=== PATIENT | male | born 1945 | race African-American/Black ===

== ENCOUNTER 2017-04-01 12:02 | Inpatient (IN) ==
--- NOTE | 2017-04-01 13:05 | General Surgery Consult Note ---
Assessment and Plan (1) Gangrene of toe of right foot Status: Acute Assessment and plan: This patient has wet gangrene of his right great toe with crepitus and significant tenderness and I have recommended a ray amputation today. The patient is medically comorbid and I have asked that he be admitted to the medicine service with nephrology consultation for his renal failure and will do further workup of his falls and weakness to the ER physician for anything further that they feel is necessary. I discussed the procedure with the patient and his and they agreed to proceed. Current Visit: Yes History of Present Illness Chief complaint: Weakness right foot pain History of present illness: Mr. Rico is a 72 year old male with history of renal failure on hemodialysis who came to the ER earlier this week for diarrhea and weakness and was given some medication and discharged home. He represents today for worsening of his symptoms and was unable to do dialysis because of how weak he was. He fell as well and presented to the ER with his for evaluation. He has a lot of pain in his right foot and has some wet gangrene over that toe. I had done a prior left great toe ray amputation which is well-healed. Home Medications Medication Instructions Recorded Confirmed Type Carvedilol 6.25 mg PO BID 09/28/15 04/01/17 History NIFEdipine [Nifedipine ER] 90 mg PO QAM 09/28/15 04/01/17 History Calcium Acetate 667 mg PO TID W/MEALS 01/06/16 04/01/17 History Cinacalcet HCl [Sensipar] 60 mg PO DAILY 11/08/16 04/01/17 History Sevelamer Carbonate Tab [Renvela 1,600 mg PO TID W/MEALS 11/08/16 04/01/17 History Tab] Atorvastatin Calcium 40 mg PO DAILY 03/29/17 04/01/17 History Diphenoxylate/Atrop 2.5-0.025 2 tablet PO Q6H PRN #20 tablet 03/29/17 04/01/17 Rx [Lomotil Tab] Multivitamin [Multivitamins] 1 each PO DAILY 03/29/17 04/01/17 History Ondansetron [Ondansetron Odt] 4 mg PO Q6H PRN #20 tab.rapdis 03/29/17 04/01/17 Rx glipiZIDE [Glipizide] 10 mg PO DAILY 03/29/17 04/01/17 History Allergies Allergy/AdvReac Type Severity Reaction Status Date / Time No Known Allergies Allergy Verified 04/01/17 12:24 Medical,Surgical,& Family Hx - Medical History Cardio: History of: Hypertension Neurology: No history of: Cerebrovascular Accident, Seizures HEENT: History of: Eye Problem (Glasses) Endocrine: History of: Diabetes Mellitus (NIDDM), Dyslipidemia Respiratory: No history of: Respiratory Problems (Flu Vac current [id number]; Current Pneum Vac) Renal: History of: Dialysis (-W- Dr. Nathan), Renal Failure, Renal Problems Musculoskeletal: History of: Amputation (left big toe) Other: History of: Miscellaneous Medical Problems ([facility]) No history of: Anesthesia Reactions, Cancer - Surgical History Cardiac Surgeries: Sugical HX of: Vascular Access Devices (Lt arm AV Graft) Neurologic Surgeries: Surgical HX of: Neurologic Surgery (previous head injury) HEENT Surgeries: Surgical HX of: Eye Surgery (Cataract RT/LT) - Family History Family History: Reports;: Family Diabetes Denies;: Family Stroke - Social History Smoking Status: Never smoker Frequency of Alcohol Use: None Type of Drug Use: None - Constitutional Constitutional: Present: as per HPI - EENT Nose, mouth and throat: Present: as per HPI - Cardiovascular Cardiovascular: Present: as per HPI - Respiratory Respiratory: Present: as per HPI - Gastrointestinal Gastrointestinal: Present: as per HPI - Genitourinary Genitourinary: Present: as per HPI - Musculoskeletal Musculoskeletal: Present: as per HPI - Neurological Neurological: Present: as per HPI - Endocrine Endocrine: Present: as per HPI Hematologic/Lymphatic: Present: as per HPI Exam - Constitutional Vitals: Period Temp Pulse Resp BP Sys/Avalos Pulse Ox Last 24 Hr 101.1 F 101 20 120/61 94 General appearance: no acute distress, over weight - Head Head exam: Present: normal inspection, normocephalic - Eye Eye exam: Present: EOMI Pupils: Present: TIN - ENT ENT exam: Present: normal exam Mouth exam: Present: normal external inspection - Neck Neck exam: Present: normal inspection, trachea midline - Respiratory Respiratory exam: Present: clear to auscultation bilaterally. Absent: accessory muscle use, chest wall tenderness - Cardiovascular Cardiovascular exam: Present: tachycardia. Absent: irregular rhythm, systolic murmur - GI/Abdominal GI/Abdominal exam: Present: soft. Absent: tenderness, rebound - Extremities Exam Extremities exam: Present: other (There is wet gangrene of the right second toe with crepitus and forefoot and significant tenderness.) - Back Exam Back exam: Present: normal inspection - Neurological Exam Neurological exam: Present: alert - Skin Skin exam: Present: normal color, warm
[2017-04-01] MEDS ORDERED: VANCOMYCIN INJ 1,000 MG in SODIUM CHLORIDE 0.9% 250 ML IV STA (13:07)
--- NOTE | 2017-04-01 13:11 | XRay Report ---
Portable chest. Indication: Fall, respiratory preoperative. The heart is enlarged. There is left ventricular hypertrophy. There is calcific plaque present within the aortic knob. The lung volumes are small. The pulmonary vasculature is normal. The lung tate are clear. Degenerative changes are present within the spinal column. Impression: Cardiomegaly. No acute abnormality. PROCEDURE INTERPRETED AT [facility] DEPARTMENT OF RADIOLOGY Final Report Signed by: Dr. Tabatha Martin
--- NOTE | 2017-04-01 13:13 | XRay Report ---
Right foot, 2 views. Indication: Second toe gangrene. Infection. Pain. No previous study. There is small vessel atherosclerotic disease, usually indicative of diabetes. There is a large plantar calcaneal spur. There is mild spurring of the dorsal mid and hindfoot. There is soft tissue swelling of the forefoot, particularly involving the second toe. There is extensive air in the soft tissues of the second toe, extending to the second metatarsophalangeal joint. No radiodense foreign body. There is absence of tissue along the distal aspect of the second toe. There is erosion of the distal tuft of the second toe, consistent with active osteomyelitis which does not extend to the joint space. Degenerative changes are noted at the first metatarsophalangeal joint. Impression: Gangrene of the second toe, with osteomyelitis of the distal phalanx of the second digit. PROCEDURE INTERPRETED AT [facility] DEPARTMENT OF RADIOLOGY Final Report Signed by: Dr. Tabatha Martin
--- NOTE | 2017-04-01 13:18 | EKG Report ---
Stationary ECG Study [facility] ER Test Date: 04/01/2017 1:18:20 PM Pat Name: SHERIF JORGENSEN Department: Room: Gender: M Guide Travel: : 1945 Requested by: Fela Rodas Order Number: [id number] Reading MD: HAYDEN PAZ Intervals [place] Rate: 100 P: 39 AL: 190 QRS: 120 QRSD: 105 T: -16 QT: 330 QTc: 387 Interpretive Statements SINUS TACHYCARDIA INCOMPLETE RIGHT BUNDLE BRANCH BLOCK POSSIBLE RIGHT VENTRICULAR HYPERTROPHY POSSIBLE ANTERIOR MYOCARDIAL INFARCTION, PROBABLY OLD Electronically Signed On 04-02-17 10:38:58 CDT by HAYDEN PAZ [email or web address]
[2017-04-01] MEDS ORDERED: GENTAMICIN INJ 120 MG in PREMIX 1 EACH IV STA (13:34)
[2017-04-01 13:35] LABS: Basophils # 0.1 10*3/uL (0.0-0.2); Basophils % 0.4 % (0.0-0.8); Eosinophils # 0.2 10*3/uL (0.0-0.87); Eosinophils % 1.1 % (0.00-10.9); Hematocrit 31.5 VOL% (42.0-52.0); Immature Granulocytes % 1.5 %; Immature Granulocytes Absolute 0.24 #; Lymphocytes # 2.5 10*3/uL (1.4-4.0); Lymphocytes % 15.1 % (21.2-54.2); Mean Corpuscular HGB Conc 34.9 GM/DL (32-36); Mean Corpuscular Hemoglobin 30 PG (27-34); Mean Corpuscular Volume 86.3 FL (87-102); Mean Platelet Volume 9.7 FL (9.6-12.0); Monocytes # 1.6 10*3/uL (0.11-0.8); Monocytes % 9.9 % (1.7-12.7); Neutrophils # 11.9 10*3/uL (1.4-7.4); Platelet Count 337 T/CUMM (130-400); Red Blood Count 3.65 MC/CUMM (3.8-5.5); Red Cell Distribution Width 15.4 % (9.3-17.3); White Blood Count 16.5 T/CUMM (4-12)
--- NOTE | 2017-04-01 13:36 | Emergency Department Note ---
Arrival - Arrival Chief Complaint: Weakness Stated Complaint: SOB, Shaking, fell ED Nursing Triage Note: C/O PATIENTS STATES THAT PATIENT HAS FELL AROUND 1800 LAST EVENING, AND AGAIN THIS AM AROUND 0530, STATES WEAK IN LEGS BILATERAL AND GENERALIZED WEAKNESS, ALSO C/O HAVING WOUND NOTED TO THE 2ND DIGIT OF THE RIGHT FOOT, + CHILLS,. DIALYSIS M,W,F Mode of Arrival: Wheelchair Source: Patient, Family, Old Records Reviewed Time Seen by Provider: 04/01/17 12:52 - History of Present Illness HPI Narrative: 72-year-old -[place] male with end-stage renal disease on hemodialysis, essential tremor, hypertension, diabetes, vasculopath presents today with his family for multiple falls. He tells me he is feeling very poorly. Family does not know anything about fevers. He says he does not know why he keeps falling. He denies weakness dizziness chest pain shortness of breath syncope. He does however complain of right toe pain. He is also had some nausea and vomiting. Family initially complained of multiple falls with weakness and triage noted that he is having a fever of 101. Family also reported that he has been having some diarrhea and he has missed dialysis over the last week. They report he has been too sick. Consistency: constant Severity: moderate Severity scale (1-10): 8 Allergies/Adverse Reactions: Allergies Allergy/AdvReac Type Severity Reaction Status Date / Time No Known Allergies Allergy Verified 04/01/17 12:24 Home Medications: Home Medications Medication Instructions Recorded Confirmed Type Carvedilol 6.25 mg PO BID 09/28/15 04/01/17 History NIFEdipine [Nifedipine ER] 90 mg PO QAM 09/28/15 04/01/17 History Calcium Acetate 667 mg PO TID W/MEALS 01/06/16 04/01/17 History Cinacalcet HCl [Sensipar] 60 mg PO DAILY 11/08/16 04/01/17 History Sevelamer Carbonate Tab [Renvela 1,600 mg PO TID W/MEALS 11/08/16 04/01/17 History Tab] Atorvastatin Calcium 40 mg PO DAILY 03/29/17 04/01/17 History Diphenoxylate/Atrop 2.5-0.025 2 tablet PO Q6H PRN #20 tablet 03/29/17 04/01/17 Rx [Lomotil Tab] Multivitamin [Multivitamins] 1 each PO DAILY 03/29/17 04/01/17 History Ondansetron [Ondansetron Odt] 4 mg PO Q6H PRN #20 tab.rapdis 03/29/17 04/01/17 Rx glipiZIDE [Glipizide] 10 mg PO DAILY 03/29/17 04/01/17 History Review of System - Review of System Constitutional: Present: chills, weakness Eyes: Absent: pain, redness Head/Ears/Nose/Throat: Absent: epistaxis, nasal drainage Respiratory: Absent: cough, respiratory distress Cardiovascular: Absent: chest pain, syncope Gastrointestinal: Present: nausea, vomiting. Absent: diarrhea Genitourinary male: Absent: dysuria, hematuria Musculoskeletal: Present: leg pain Skin: Absent: rash, pruritus Neurological: Absent: headache Medical,Surgical,& Family Hx - Medical History Cardio: History of: Hypertension Neurology: No history of: Cerebrovascular Accident, Seizures HEENT: History of: Eye Problem (Glasses) Endocrine: History of: Diabetes Mellitus (NIDDM), Dyslipidemia Respiratory: No history of: Respiratory Problems (Flu Vac current [id number]; Current Pneum Vac) Renal: History of: Dialysis (-W- Dr. Nathan), Renal Failure, Renal Problems Musculoskeletal: History of: Amputation (left big toe) Other: History of: Miscellaneous Medical Problems ([facility]) No history of: Anesthesia Reactions, Cancer - Surgical History Cardiac Surgeries: Sugical HX of: Vascular Access Devices (Lt arm AV Graft) Neurologic Surgeries: Surgical HX of: Neurologic Surgery (previous head injury) HEENT Surgeries: Surgical HX of: Eye Surgery (Cataract RT/LT) - Family History Family History: Reports;: Family Diabetes Denies;: Family Stroke - Social History Smoking Status: Never smoker Frequency of Alcohol Use: None Type of Drug Use: None Exam Vital Signs: Vital Signs Temperature 101.1 F H 04/01/17 12:18 Pulse Rate 101 H 04/01/17 12:18 Respiratory Rate 20 04/01/17 12:18 Blood Pressure 120/61 04/01/17 12:18 O2 Sat by Pulse Oximetry 94 L 04/01/17 12:18 - General General appearance: alert, other (tremor) - Head Head exam: Present: atraumatic, normocephalic - Eye Eye exam: Present: normal appearance - ENT ENT exam: Present: normal exam - Neck Neck exam: Present: normal inspection, full ROM - Chest Chest inspection: Present: normal inspection - Respiratory Respiratory exam: Present: normal lung sounds bilaterally. Absent: rales, wheezes - Cardiovascular Cardiovascular exam: Present: normal heart sounds, +S1, +S2 - Abdominal Exam Abdominal exam: Present: soft. Absent: distention - Extremities Exam Extremities exam: Present: other (obvious wet gangrene of right 2nd digit, black and oozing, multiple other toes missing) Course Course Narrative: General surgery consult due to surgery already in room. They report they will take off his toe because of gangrene. But given his dialysis and other complicating history he will likely need hospitalist admission. I suspect he likely is fluid down because of nausea vomiting and diarrhea given his missed dialysis for a week. This could be the reason for his falls as could his infection and osteomyelitis of his toe as revealed by x-ray we will do blood cultures and given Vanco and gentamicin. Her surgery recommendation. Will touch base with the hospitalist. Results - Labs CBC & BMP: 04/01/17 13:11 04/01/17 13:11 Disposition Case discussed with: patient, patient's family Disposition: Still a Patient
[2017-04-01] MEDS ORDERED: VANCOMYCIN 1,000 MG VIAL ONE (13:50)
[2017-04-01 14:05] LABS: Albumin 2.9 G/DL (3.4-5.0); Bilirubin,Total 0.5 MG/DL (0.2-1.0); Calcium 9.5 MG/DL (8.5-10.1); Osmolality,Calculated 280.9 MOS/KG (273-304); Potassium 3.9 MMOL/L (3.5-5.1); Total Protein 7.9 G/DL (6.4-8.3)
[2017-04-01] MEDS ORDERED: SODIUM CHLORIDE 0.9% 1,000 ML IV ONE (14:57)
[2017-04-01] MEDS ORDERED: GENTAMICIN 80 MG/2 ML VIAL ONE (15:07)
--- NOTE | 2017-04-01 15:20 | Hospitalist History & Physical ---
Assessment and Plan - Time spent with patient Time spent with patient: Greater than 30 minutes (1) Gangrene of toe of right foot Status: Acute Assessment and plan: Wet gangrene of second digit on right foot. Dr. Phillips, general surgery, has been consulted and plans to proceed with amputation either tonight or tomorrow. X-ray reveals osteomyelitis. Blood cultures have been collected. Will start on vancomycin and gentamicin. Current Visit: Yes (2) ESRD (end stage renal disease) on dialysis Status: Acute Assessment and plan: Patient dialyzes on Mondays, Wednesdays, Fridays. Patient has not been dialyzed since Sunday due to weakness and diarrhea. Patient is followed by Dr. Tapia. Will consult nephrology for inpatient dialysis. Current Visit: No (3) Gastroenteritis Status: Acute Current Visit: No (4) Essential (primary) hypertension Status: Chronic Current Visit: No (5) Dyslipidemia Status: Acute Current Visit: No History of Present Illness Chief complaint: generalized weakness History of present illness: Mr. Rico is a 72 year old -[place]ian male with past medical history significant for diabetes mellitus, hypertension and end-stage renal disease on hemodialysis who presents to the ED today with complaints of generalized weakness, nausea and diarrhea 1 week. The patient and his present to the ED today after the patient fell this morning due to his weakness. Of note the patient has a previous amputation of the left great toe and on exam today he has a wet gangrene of the second digit of the right foot. Dr. Nahum Phillips, general surgery, has been consulted and has agreed to proceed with amputation of the toe sometime today or tomorrow. The patient dialyzes Sunday, Sunday, Sunday, however he has not dialyzed since Sunday due to diarrhea and weakness. Outside of the gangrenous toe, patient denies being in any pain. He admits shortness of breath. Of note, the patient's reports that the patient has not had a "decent meal" since Sunday. Lab work on admission is significant for WBC 16.5, sodium 129, potassium 3.9, BUN 76, creatinine 15.4, glucose 103. Patient is followed by Dr. Marcelino Harrington and Dr. Jovani Tapia, nephrology. Case has been discussed with Dr. Ochoa, admitting physician, the patient will be admitted for further evaluation and treatment. He is a full code. Home meds have been reviewed and reconciled. Home Medications Medication Instructions Recorded Confirmed Type Carvedilol 6.25 mg PO BID 09/28/15 04/01/17 History NIFEdipine [Nifedipine ER] 90 mg PO QAM 09/28/15 04/01/17 History Calcium Acetate 667 mg PO TID W/MEALS 01/06/16 04/01/17 History Cinacalcet HCl [Sensipar] 60 mg PO DAILY 11/08/16 04/01/17 History Sevelamer Carbonate Tab [Renvela 1,600 mg PO TID W/MEALS 11/08/16 04/01/17 History Tab] Atorvastatin Calcium 40 mg PO DAILY 03/29/17 04/01/17 History Diphenoxylate/Atrop 2.5-0.025 2 tablet PO Q6H PRN #20 tablet 03/29/17 04/01/17 Rx [Lomotil Tab] Multivitamin [Multivitamins] 1 each PO DAILY 03/29/17 04/01/17 History Ondansetron [Ondansetron Odt] 4 mg PO Q6H PRN #20 tab.rapdis 03/29/17 04/01/17 Rx glipiZIDE [Glipizide] 10 mg PO DAILY 03/29/17 04/01/17 History Allergies Allergy/AdvReac Type Severity Reaction Status Date / Time No Known Allergies Allergy Verified 04/01/17 12:24 Medical,Surgical,& Family Hx - Medical History Cardio: History of: Hypertension Neurology: No history of: Cerebrovascular Accident, Seizures HEENT: History of: Eye Problem (Glasses) Endocrine: History of: Diabetes Mellitus (NIDDM), Dyslipidemia Respiratory: No history of: Respiratory Problems (Flu Vac current [id number]; Current Pneum Vac) Renal: History of: Dialysis (M-W-F Dr. Nathan), Renal Failure, Renal Problems Musculoskeletal: History of: Amputation (left big toe) Other: History of: Miscellaneous Medical Problems ([facility]) No history of: Anesthesia Reactions, Cancer - Surgical History Cardiac Surgeries: Sugical HX of: Vascular Access Devices (Lt arm AV Graft) Neurologic Surgeries: Surgical HX of: Neurologic Surgery (previous head injury) HEENT Surgeries: Surgical HX of: Eye Surgery (Cataract RT/LT) - Family History Family History: Reports;: Family Diabetes Denies;: Family Stroke - Social History Smoking Status: Never smoker Frequency of Alcohol Use: None Type of Drug Use: None Marital Status: Lives With:: Spouse Functional capacity: independent ambulation - Constitutional Constitutional: Present: chills, frequent falls, weakness. Absent: headache(s) - EENT Eyes: Absent: blurry vision, loss of vision Ears: Absent: decreased hearing, ear pain Nose, mouth and throat: Absent: headache(s), neck mass, sore throat, vertigo - Cardiovascular Cardiovascular: Present: dyspnea, edema. Absent: chest pain at rest, chest pain with activity - Respiratory Respiratory: Present: dyspnea. Absent: cough, wheezing - Gastrointestinal Gastrointestinal: Present: diarrhea, loose stools, nausea, vomiting. Absent: abdominal pain, melena - Genitourinary Genitourinary: Absent: difficulty urinating, dysuria - Musculoskeletal Musculoskeletal: Absent: arthralgias, back pain - Neurological Neurological: Absent: abnormal gait, abnormal speech, dizziness, numbness, syncope - Psychiatric Psychiatric: Absent: anxiety, confusion, depression - Endocrine Endocrine: Absent: cold intolerance, fatigue, heat intolerance - Hematologic/Lymphatic Hematologic/Lymphatic: Absent: easy bleeding, easy bruising Exam - Constitutional Vitals: Period Temp Pulse Resp BP Sys/Avalos Pulse Ox Last 24 Hr 101.1 F 101 20 120/61 94 General appearance: mild distress, over weight - Head Head exam: Present: normal inspection, normocephalic - Eye Eye exam: Present: EOMI Pupils: Present: TIN - Neck Neck exam: Absent: tenderness, thyromegaly - Respiratory Respiratory exam: Present: decreased breath sounds. Absent: rhonchi, wheezes - Cardiovascular Cardiovascular exam: Present: regular rate and rhythm - GI/Abdominal GI/Abdominal exam: Present: normal bowel sounds, soft. Absent: mass, tenderness - Extremities Exam Extremities exam: Present: edema - Neurological Exam Neurological exam: Present: alert, oriented X3, CN II-XII intact - Psychiatric Psychiatric exam: Present: normal mood - Skin Skin exam: Present: warm, erythema, other (Gangrenous toe (right second digit)) Results - Labs CBC & BMP: 04/01/17 13:11 04/01/17 13:11 Lab Results: I have reviewed the past 24 hour labs
[2017-04-01] MEDS ORDERED: GLUCAGON 1 MG VIAL IM PRN (15:48)
[2017-04-01] MEDS ORDERED: LACTULOSE 20 GM/30 ML UDCUP PO PRN (15:48)
[2017-04-01] MEDS ORDERED: DEXTROSE 50% 25 GM/50 ML VIAL IV PRN (15:48)
[2017-04-01] MEDS ORDERED: NOREPINEPHRINE 8 MG in SODIUM CHLORIDE 0.9% 242 ML IV SCH (15:48)
[2017-04-01] MEDS ORDERED: SODIUM CHLORIDE 0.9% 1,000 ML IV SCH (15:48)
[2017-04-01] MEDS ORDERED: ONDANSETRON 4 MG/2 ML VIAL IV PRN ×2 (15:48→17:44)
--- NOTE | 2017-04-01 15:53 | Hospitalist History & Physical ---
Assessment and Plan (1) Septic shock Status: Acute Assessment and plan: vanco and gentamicin IV, NS 1000 bolus, will not more fluids, hypotensive in ER. will have toe amputated today, levaphed Current Visit: Yes (2) Gangrene of toe of right foot Status: Acute Assessment and plan: will amputate toe today. Current Visit: Yes (3) Diabetes mellitus Status: Chronic Assessment and plan: isc, npo Current Visit: No (4) Gastroenteritis Status: Acute Assessment and plan: lomotil prn resolved Current Visit: No (5) ESRD (end stage renal disease) on dialysis Status: Acute Assessment and plan: dailysis M, W, F, Dr. Cadet Current Visit: No History of Present Illness Chief complaint: fever History of present illness: Mr. Rico is a 72 year old male - Time spent with patient Time spent with patient: Greater than 30 minutes (1) Gangrene of toe of right foot Status: Acute Assessment and plan: Wet gangrene of second digit on right foot. Dr. Phillips, general surgery, has been consulted and plans to proceed with amputation either tonight or tomorrow. X-ray reveals osteomyelitis. Blood cultures have been collected. Will start on vancomycin and gentamicin. Current Visit: Yes (2) ESRD (end stage renal disease) on dialysis Status: Acute Assessment and plan: Patient dialyzes on Mondays, Wednesdays, Fridays. Patient has not been dialyzed since Sunday due to weakness and diarrhea. Patient is followed by Dr. Tapia. Will consult nephrology for inpatient dialysis. Current Visit: No (3) Gastroenteritis Status: Acute Current Visit: No (4) Essential (primary) hypertension Status: Chronic Current Visit: No (5) Dyslipidemia Status: Acute Current Visit: No History of Present Illness Chief complaint: generalized weakness History of present illness: Mr. Rico is a 72 year old -[place] male with past medical history significant for diabetes mellitus, hypertension and end-stage renal disease on hemodialysis who presents to the ED today with complaints of generalized weakness, nausea and diarrhea 1 week. The patient and his present to the ED today after the patient fell this morning due to his weakness. Of note the patient has a previous amputation of the left great toe and on exam today he has a wet gangrene of the second digit of the right foot. Dr. Nahum Phillips, general surgery, has been consulted and has agreed to proceed with amputation of the toe sometime today or tomorrow. The patient dialyzes Sunday, Sunday, Sunday, however he has not dialyzed since Sunday due to diarrhea and weakness. Outside of the gangrenous toe, patient denies being in any pain. He admits shortness of breath. Of note, the patient's reports that the patient has not had a "decent meal" since Sunday. Lab work on admission is significant for WBC 16.5, sodium 129, potassium 3.9, BUN 76, creatinine 15.4, glucose 103. Patient is followed by Dr. Marcelino Harrington and Dr. Jovani Tapia, nephrology. Case has been discussed with Dr. Ochoa, admitting physician, the patient will be admitted for further evaluation and treatment. He is a full code. Home meds have been reviewed and reconciled. Home Medications Medication Instructions Recorded Confirmed Type Carvedilol 6.25 mg PO BID 09/28/15 04/01/17 History NIFEdipine [Nifedipine ER] 90 mg PO QAM 09/28/15 04/01/17 History Calcium Acetate 667 mg PO TID W/MEALS 01/06/16 04/01/17 History Cinacalcet HCl [Sensipar] 60 mg PO DAILY 11/08/16 04/01/17 History Sevelamer Carbonate Tab [Renvela 1,600 mg PO TID W/MEALS 11/08/16 04/01/17 History Tab] Atorvastatin Calcium 40 mg PO DAILY 03/29/17 04/01/17 History Diphenoxylate/Atrop 2.5-0.025 2 tablet PO Q6H PRN #20 tablet 03/29/17 04/01/17 Rx [Lomotil Tab] Multivitamin [Multivitamins] 1 each PO DAILY 03/29/17 04/01/17 History Ondansetron [Ondansetron Odt] 4 mg PO Q6H PRN #20 tab.rapdis 03/29/17 04/01/17 Rx glipiZIDE [Glipizide] 10 mg PO DAILY 03/29/17 04/01/17 History Allergies Allergy/AdvReac Type Severity Reaction Status Date / Time No Known Allergies Allergy Verified 04/01/17 12:24 Medical,Surgical,& Family Hx - Medical History Cardio: History of: Hypertension Neurology: No history of: Cerebrovascular Accident, Seizures HEENT: History of: Eye Problem (Glasses) Endocrine: History of: Diabetes Mellitus (NIDDM), Dyslipidemia Respiratory: No history of: Respiratory Problems (Flu Vac current [id number]; Current Pneum Vac) Renal: History of: Dialysis (-W- Dr. Nathan), Renal Failure, Renal Problems Musculoskeletal: History of: Amputation (left big toe) Other: History of: Miscellaneous Medical Problems ([facility]) No history of: Anesthesia Reactions, Cancer - Surgical History Cardiac Surgeries: Sugical HX of: Vascular Access Devices (Lt arm AV Graft) Neurologic Surgeries: Surgical HX of: Neurologic Surgery (previous head injury) HEENT Surgeries: Surgical HX of: Eye Surgery (Cataract RT/LT) - Family History Family History: Reports;: Family Diabetes Denies;: Family Stroke - Social History Smoking Status: Never smoker Frequency of Alcohol Use: None Type of Drug Use: None Marital Status: Lives With:: Spouse Functional capacity: independent ambulation - Constitutional Constitutional: Present: chills, frequent falls, weakness. Absent: headache(s) - EENT Eyes: Absent: blurry vision, loss of vision Ears: Absent: decreased hearing, ear pain Nose, mouth and throat: Absent: headache(s), neck mass, sore throat, vertigo - Cardiovascular Cardiovascular: Present: dyspnea, edema. Absent: chest pain at rest, chest pain with activity - Respiratory Respiratory: Present: dyspnea. Absent: cough, wheezing - Gastrointestinal Gastrointestinal: Present: diarrhea, loose stools, nausea, vomiting. Absent: abdominal pain, melena - Genitourinary Genitourinary: Absent: difficulty urinating, dysuria - Musculoskeletal Musculoskeletal: Absent: arthralgias, back pain - Neurological Neurological: Absent: abnormal gait, abnormal speech, dizziness, numbness, syncope - Psychiatric Psychiatric: Absent: anxiety, confusion, depression - Endocrine Endocrine: Absent: cold intolerance, fatigue, heat intolerance - Hematologic/Lymphatic Hematologic/Lymphatic: Absent: easy bleeding, easy bruising Exam - Constitutional Vitals: Period Temp Pulse Resp BP Sys/Avalos Pulse Ox Last 24 Hr 101.1 F 101 20 120/61 94 General appearance: mild distress, over weight - Head Head exam: Present: normal inspection, normocephalic - Eye Eye exam: Present: EOMI Pupils: Present: TIN - Neck Neck exam: Absent: tenderness, thyromegaly - Respiratory Respiratory exam: Present: decreased breath sounds. Absent: rhonchi, wheezes - Cardiovascular Cardiovascular exam: Present: regular rate and rhythm - GI/Abdominal GI/Abdominal exam: Present: normal bowel sounds, soft. Absent: mass, tenderness - Extremities Exam Extremities exam: Present: edema - Neurological Exam Neurological exam: Present: alert, oriented X3, CN II-XII intact - Psychiatric Psychiatric exam: Present: normal mood - Skin Skin exam: Present: warm, erythema, other (Gangrenous toe (right second digit)) Results - Labs CBC & BMP: 04/01/17 13:11 04/01/17 13:11 Lab Results: I have reviewed the past 24 hour labs Home Medications Medication Instructions Recorded Confirmed Type Carvedilol 6.25 mg PO BID 09/28/15 04/01/17 History NIFEdipine [Nifedipine ER] 90 mg PO QAM 09/28/15 04/01/17 History Calcium Acetate 667 mg PO TID W/MEALS 01/06/16 04/01/17 History Cinacalcet HCl [Sensipar] 60 mg PO DAILY 11/08/16 04/01/17 History Sevelamer Carbonate Tab [Renvela 1,600 mg PO TID W/MEALS 11/08/16 04/01/17 History Tab] Atorvastatin Calcium 40 mg PO DAILY 03/29/17 04/01/17 History Diphenoxylate/Atrop 2.5-0.025 2 tablet PO Q6H PRN #20 tablet 03/29/17 04/01/17 Rx [Lomotil Tab] Multivitamin [Multivitamins] 1 each PO DAILY 03/29/17 04/01/17 History Ondansetron [Ondansetron Odt] 4 mg PO Q6H PRN #20 tab.rapdis 03/29/17 04/01/17 Rx glipiZIDE [Glipizide] 10 mg PO DAILY 03/29/17 04/01/17 History Allergies Allergy/AdvReac Type Severity Reaction Status Date / Time No Known Allergies Allergy Verified 04/01/17 12:24 Medical,Surgical,& Family Hx - Medical History Cardio: History of: Hypertension Neurology: No history of: Cerebrovascular Accident, Seizures HEENT: History of: Eye Problem (Glasses) Endocrine: History of: Diabetes Mellitus (NIDDM), Dyslipidemia Respiratory: No history of: Respiratory Problems (Flu Vac current [id number]; Current Pneum Vac) Renal: History of: Dialysis (M-W- Dr. Nathan), Renal Failure, Renal Problems Musculoskeletal: History of: Amputation (left big toe) Other: History of: Miscellaneous Medical Problems ([facility]) No history of: Anesthesia Reactions, Cancer - Surgical History Cardiac Surgeries: Sugical HX of: Vascular Access Devices (Lt arm AV Graft) Neurologic Surgeries: Surgical HX of: Neurologic Surgery (previous head injury) HEENT Surgeries: Surgical HX of: Eye Surgery (Cataract RT/LT) - Family History Family History: Reports;: Family Diabetes Denies;: Family Stroke - Social History Smoking Status: Never smoker Frequency of Alcohol Use: None Type of Drug Use: None Exam - Constitutional Vitals: Period Temp Pulse Resp BP Sys/Avalos Pulse Ox Last 24 Hr 101.1 F 101 20 120/61 94 Results - Labs CBC & BMP: 04/01/17 13:11 04/01/17 13:11
[2017-04-01 16:03] LABS: INR 1.5; PT Patient Result 15.8 SECS; Partial Thromboplastin Time 31.9 SECS (0-40)
[2017-04-01] MEDS ORDERED: BUPIVACAINE 0.25% 50 ML VIAL ONE (16:38)
--- NOTE | 2017-04-01 17:04 | Operative Note ---
Date of procedure: 04/01/17 Pre-op diagnosis: Wet gangrene right second toe Post-op diagnosis: same Procedure: Preoperative diagnosis Wet gangrene right second Postoperative diagnosis Same Procedures performed Right second toe ray amputation Excisional debridement of necrotic skin and subcutaneous tissue Findings Necrotic tissue extended to the forefoot but it was all excised and removed with a ray amputation of the right second toe. Excisional debridement was performed with scalpel and scissors and measured 20 cm of skin and subcutaneous tissue. Complications None apparent Specimen Cultures were sent for some purulent drainage at the foot wound Blood loss 10 mL Indications Right second toe wet gangrene. The risks, benefits, and alternatives of the operation were discussed with the patient and family. The risk of phantom pain and need for higher amputation were discussed in detail and elected to proceed. Their questions were answered. Description of procedure Patient was taken to the operating room and transferred to the operating table in the supine position. The right leg was prepped with Betadine and draped sterilely. Preoperative antibiotics were administered and timeout was performed. Local anesthetic was administered around the right second toe. An elliptical skin incision was then made with a 15 blade scalpel and the toe was amputated at the metatarsal phalangeal joint. Necrotic skin and subcutaneous tissue was debrided with a scalpel and scissors and measured 20 cm. The debridement was done back to healthy bleeding tissue. A rongeur was used to debride the bone back past the capsule of the metatarsal head. The foot was dressed with dry gauze dressing between the toes, cast padding, and Coban. The patient was awakened from anesthesia and transferred to recovery. Postoperative plan Continue wound care and antibiotics Follow-up cultures Anesthesia: MAC, local Surgeon / Physician: Nahum Phillips Estimated blood loss: minimal Specimens: other (cultures) Condition: critical Disposition: ICU Results - Labs CBC & BMP: 04/01/17 13:11 04/01/17 13:11 Discharge Plan - Discharge Medications No Action Carvedilol 6.25 mg PO BID NIFEdipine [Nifedipine ER] 90 mg PO QAM Calcium Acetate 667 mg PO TID W/MEALS glipiZIDE [Glipizide] 10 mg PO DAILY Sevelamer Carbonate Tab [Renvela Tab] 1,600 mg PO TID W/MEALS Cinacalcet HCl [Sensipar] 60 mg PO DAILY Diphenoxylate/Atrop 2.5-0.025 [Lomotil Tab] 2 tablet PO Q6H PRN #20 tablet PRN Reason: Diarrhea Ondansetron [Ondansetron Odt] 4 mg PO Q6H PRN #20 tab.rapdis PRN Reason: Nausea Atorvastatin Calcium 40 mg PO DAILY Multivitamin [Multivitamins] 1 each PO DAILY - Follow Up or Referral - Forms/Instructions
--- NOTE | 2017-04-01 17:16 | Anesthesia Post-Op ---
Anesthesia Post OP - Post Ansesthetic Evaluation Patient seen in post op: Yes Resp: within normal limits CV: within normal limits Mental: within normal limits Temp: within normal limits [id number]: within normal limits Nausea and Vomiting: within normal limits Pain: within normal limits
[2017-04-01] MEDS ORDERED: KETAMINE 500 MG/10 ML VIAL ONE (17:30)
[2017-04-01] MEDS ORDERED: HYDROmorphone 2 MG/1 ML VIAL IV PRN (17:44)
[2017-04-01] MEDS ORDERED: SODIUM CHLORIDE 0.9% 250 ML IV SCH (18:00)
[2017-04-01] MEDS: ENOXAPARIN 30 MG/0.3 ML SYRINGE SUBCUT SCH (18:13)
[2017-04-01] MEDS: CALCIUM ACETATE 667 MG CAPSULE PO SCH (18:14)
[2017-04-01] MEDS: SEVELAMER CARBONATE 800 MG TABLET PO SCH (18:14)
[2017-04-01] MEDS ORDERED: GENTAMICIN INJ 80 MG in PREMIX 1 EACH IV ONE (21:00)
[2017-04-01] MEDS ORDERED: VANCOMYCIN INJ 500 MG in SODIUM CHLORIDE 0.9% 100 ML IV ONE (22:00)
[2017-04-01] MEDS ORDERED: hydrALAZINE 20 MG/1 ML VIAL IV PRN (22:14)
[2017-04-02] MEDS: ACETAMINOPHEN 325 MG TABLET PO PRN (02:25)
[2017-04-02 04:03] LABS: Basophils # 0.1 10*3/uL (0.0-0.2); Basophils % 0.5 % (0.0-0.8); Eosinophils # 0.2 10*3/uL (0.0-0.87); Eosinophils % 1.9 % (0.00-10.9); Hematocrit 26.5 VOL% (42.0-52.0); Hemoglobin 8.9 GM/DL (14.0-18.0); Immature Granulocytes Absolute 0.13 #; Lymphocytes # 2.4 10*3/uL (1.4-4.0); Lymphocytes % 18.8 % (21.2-54.2); Mean Corpuscular HGB Conc 33.6 GM/DL (32-36); Mean Corpuscular Hemoglobin 29 PG (27-34); Mean Corpuscular Volume 86.6 FL (87-102); Mean Platelet Volume 9.7 FL (9.6-12.0); Monocytes # 1.2 10*3/uL (0.11-0.8); Monocytes % 9.2 % (1.7-12.7); Neutrophils # 8.9 10*3/uL (1.4-7.4); Neutrophils % 68.6 % (38.7-73.9); Platelet Count 301 T/CUMM (130-400); Red Blood Count 3.06 MC/CUMM (3.8-5.5); Red Cell Distribution Width 15.5 % (9.3-17.3); White Blood Count 12.9 T/CUMM (4-12)
[2017-04-02 04:18] LABS: Risk Ratio 8.32; VLDL CHOLESTEROL 49.2 MG/DL
[2017-04-02 04:20] LABS: Calcium 8.9 MG/DL (8.5-10.1); Magnesium 2.2 MG/DL (1.8-2.4); Osmolality,Calculated 287.2 MOS/KG (273-304); Potassium 3.9 MMOL/L (3.5-5.1)
[2017-04-02] MEDS: SODIUM HYPOCHLORITE 0.25% IRRIG 473 ML BOTTLE TOP SCH (05:55)
--- NOTE | 2017-04-02 06:21 | Event Note ---
General Surgery Progress Note Chief complaint This patient is a 72-year-old man with end-stage renal disease on hemodialysis who is admitted with a necrotizing infection of his right second toe treated with right second toe ray amputation and excisional debridement on 04/01/2017 Interval history The patient did well overnight. He did not require any pressors and actually was hypertensive. He feels well today. His white blood cell count is down to 12,900. Physical exam The patient's right second toe wound is clean with good blood supply and no evidence of ongoing necrotic tissue. Labs Reviewed, as above Imaging None Assessment and plan Continue local wound care and antibiotics Follow-up cultures I am okay with the patient moving to the floor if the medical service agrees.
[2017-04-02] MEDS: CINACALCET 30 MG TABLET PO SCH (09:15)
[2017-04-02] MEDS: ATORVASTATIN 40 MG TABLET PO SCH (09:15)
[2017-04-02] MEDS: SEVELAMER CARBONATE 800 MG TABLET PO SCH ×3 (09:15→17:29)
[2017-04-02] MEDS: CALCIUM ACETATE 667 MG CAPSULE PO SCH ×3 (09:16→17:29)
[2017-04-02] MEDS: PANTOPRAZOLE 40 MG TABLET PO SCH (09:16)
--- NOTE | 2017-04-02 09:48 | Nephrology Consult Note ---
History of Present Illness Chief complaint: End-stage renal disease in a patient admitted for hypotension and toe gangr History of present illness: Mr. Rico is a 72 year old male with end-stage renal disease who dialyzes on a Sunday basis and [place]. The patient's last dialysis was a week ago. The patient states he skipped his past 2 dialysis treatments related to diarrhea. The patient presented to the emergency room yesterday with the complaint of frequent falls in the past day as well as weakness. The patient was also complaining of pain in his right second digit of his foot. He states he had some drainage from this foot and no foul odor coming from it for the past 10 days or more. Patient also was noted to have a fever to 101 on presentation to the ER and his systolic blood pressure was low around 83 at times yesterday. The patient did require pressor support therapy for a period of time yesterday. The patient is now status post resection of this toe. He is off pressor support therapy and is to be moved to a monitored room. The patient has a history of diabetes and hypertension. He is also had the left great toe amputated in the past for a nonhealing wound. ROS: Head - denies headaches ENT - denies sore throat Lymphatics - denies lymphadenopathy Hematology - denies bleeding problems Heart - denies chest pain Lungs - denies shortness of breath Abdomen - denies abdominal pain Musculoskeletal - denies arthritis Skin - denies rash Neurology - denies stroke General - denies fever, he apparently did have some chills yesterday per the medical record PE: General: in no acute distress Eyes: Pupils are round and reactive, conjunctivae are clear ENT: Nose is clear, O/P is benign Neck: Supple, no thyromegaly Lymphatics: No cervical, supraclavicular or axillary adenopathy Heart: Regular rate and rhythm, no edema Lungs: Clear to auscultation anteriorly, chest expansion symmetric Abdomen: Soft, normoactive bowel sounds, no hepatomegaly Musculoskeletal: No joint erythema or effusions, he has a left great toe amputation and a second digit toe amputation on the right foot, his right foot is wrapped in a gauze dressing Skin: Normal turgor, normal hydration, no rash Neuro/Psych: Alert but a little drowsy, he is cooperative and has poor insight Home Medications Medication Instructions Recorded Confirmed Type Carvedilol 6.25 mg PO BID 09/28/15 04/01/17 History NIFEdipine [Nifedipine ER] 90 mg PO QAM 09/28/15 04/01/17 History Calcium Acetate 667 mg PO TID W/MEALS 01/06/16 04/01/17 History Cinacalcet HCl [Sensipar] 60 mg PO DAILY 11/08/16 04/01/17 History Sevelamer Carbonate Tab [Renvela 1,600 mg PO TID W/MEALS 11/08/16 04/01/17 History Tab] Atorvastatin Calcium 40 mg PO DAILY 03/29/17 04/01/17 History Diphenoxylate/Atrop 2.5-0.025 2 tablet PO Q6H PRN #20 tablet 03/29/17 04/01/17 Rx [Lomotil Tab] Multivitamin [Multivitamins] 1 each PO DAILY 03/29/17 04/01/17 History Ondansetron [Ondansetron Odt] 4 mg PO Q6H PRN #20 tab.rapdis 03/29/17 04/01/17 Rx glipiZIDE [Glipizide] 10 mg PO DAILY 03/29/17 04/01/17 History Allergies Allergy/AdvReac Type Severity Reaction Status Date / Time No Known Allergies Allergy Verified 04/01/17 12:24 Medical,Surgical,& Family Hx - Medical History Cardio: History of: Hypertension Neurology: No history of: Cerebrovascular Accident, Seizures HEENT: History of: Eye Problem (Glasses) Endocrine: History of: Diabetes Mellitus (NIDDM) (3-4 years), Dyslipidemia Respiratory: No history of: Respiratory Problems (Flu Vac current [id number]; Current Pneum Vac) Renal: History of: Dialysis (M-W- Dr. Nathan), Renal Failure, Renal Problems Musculoskeletal: History of: Amputation (left big toe) Other: History of: Miscellaneous Medical Problems ([facility]) No history of: Anesthesia Reactions, Cancer - Surgical History Cardiac Surgeries: Sugical HX of: Vascular Access Devices (Lt arm AV Graft) Thoracic Surgeries: Patient denies;: Organ Transplant Neurologic Surgeries: Surgical HX of: Neurologic Surgery (previous head injury, craniotomy in the ) HEENT Surgeries: Surgical HX of: Eye Surgery (Cataract RT/LT) - Family History Family History: Reports;: Family Diabetes, Family Hypertension Denies;: Family Stroke - Social History Smoking Status: Never smoker Frequency of Alcohol Use: None Type of Drug Use: None Exam - Vital Signs Vital signs: Period Temp Pulse Resp BP Sys/Avalos Pulse Ox Last 24 Hr 97.2 F-101.1 F 83-107 14-24 83-194/39-80 94-100 Results - Labs CBC & BMP: 04/02/17 03:41 04/02/17 03:41 Assessment and Plan (1) Gangrene of toe of right foot Status: Acute Assessment and plan: Patient is status post toe amputation Current Visit: Yes (2) Septic shock Status: Acute Current Visit: Yes (3) ESRD (end stage renal disease) on dialysis Status: Acute Assessment and plan: Patient is not dialyzed in about a week, will plan on hemodialysis today Current Visit: No (4) Fever Status: Acute Assessment and plan: Patient has a low-grade temp of around 100.1 presently we will continue IV antibiotics Current Visit: No (5) Anemia Problem details: transfuse on HD tomorrow. Status: Chronic Assessment and plan: Patient's hematocrit around 26%, I am going to start him on EPO Current Visit: No (6) Diabetes mellitus Status: Chronic Assessment and plan: We will monitor with sliding scale Current Visit: No (7) History of hypertension Status: Acute Current Visit: Yes
--- NOTE | 2017-04-02 09:50 | Hospitalist Progress Note ---
Assessment and Plan (1) Gangrene of toe of right foot Status: Acute Assessment and plan: The patient has had ray amputation of the right second toe. The patient is recovering well and ready for transfer to the floor off pressor. We will continue IV antibiotics and diabetes management. Current Visit: Yes (2) Essential (primary) hypertension Status: Chronic Current Visit: No (3) ESRD (end stage renal disease) on dialysis Problem details: Next routine CHD tomorrow. Transfuse 2u pRBCs on HD. Epo 20k. Status: Chronic Current Visit: No (4) Diabetes mellitus Status: Chronic Current Visit: No Hospitalist: Subjective Interval history: The patient was admitted to the hospital with diabetic foot infection. The patient had second ray amputation with Dr. Phillips. The patient recovered in the intensive care unit and is now stable. The patient is ready for transfer to the surgery matute. Exam - Constitutional Vitals: Period Temp Pulse Resp BP Sys/Avalos Pulse Ox Last 24 Hr 97.2 F-101.1 F 83-107 14-24 83-194/39-80 94-100 Exam: Constitutional System: Mild distress on account of foot pain. No tremulousness. Head: Normocephalic, atraumatic. Ears, Nose and Throat System: No evidence of Otitis or Mastoiditis. No epistaxis or discharge Eyes System: Pupils equal, round, and reactive. Extraocular muscles intact. Neck: Supple, without adenopathy, No jugular venous distention. No thyromegaly , neck mass, or prior surgery apparent. Respiratory System: Chest clear to auscultation. Cardiovascular System: Heart with regular rate and rhythm. No murmur. GI System: Abdomen soft, nontender. Normo active bowel sounds present. Musculoskeletal System: limbs with no pedal edema. Full distal pulses. Previous left foot first ray amputation Neurological System: Some globin stocking sensory deficit. No aphasia Psychiatric System: Conversation is rational Results - Labs CBC & BMP: 04/02/17 03:41 04/02/17 03:41 Lab Results: I have reviewed the past 24 hour labs
[2017-04-02] MEDS ORDERED: EPOETIN ALFA 10,000 UNIT/1 ML VIAL IV PRN (09:52)
[2017-04-02 11:23] LABS: Hepatitis A Ab IgM Quant 0.07 Index; Hepatitis A Ab IgM Result Negative (Negative); Hepatitis B Core IgM Quant 0.19 Index; Hepatitis B Core IgM Result Negative (Negative); Hepatitis B Surface Ag Quant < 0.10 Index; Hepatitis B Surface Ag Result Negative (Negative); Hepatitis C Virus Ab Quant 0.04 Index; Hepatitis C Virus Ab Result Negative (Negative)
--- NOTE | 2017-04-02 13:02 | ECHO Report ---
Alberto Rico Exam Date: 04/02/2017 10:27 Referring Physician: Technologist: jakub WinslowS, RVT Age: 72 Ht (in): 70 Wt (lb): 210 Gender: M Exam Location: [facility] Echo Indications: Essential (primary) hypertension, Weakness, End stage renal disease, Dyslipidemia, Septic shock, Gastroenteritis, Gangrene of toe on right foot BP: 139 / 52 HR: 87 Rhythm: Sinus Technical Quality: IMPRESSIONS Normal chamber sizes 2-3+ concentric LVH Hyperdynamic LV systolic function with ejection fraction estimated be 70% without segmental wall motion normality 1-2+ aortic stenosis with mean/peak gradient 18/33 mmHg 1+ tricuspid regurgitation with RVSP 29 mmHg plus RAP Grade 1 diastolic dysfunction MEASUREMENTS (Male / Female) Normal Values 2D ECHO LV Diastolic Diameter PLAX 5.0 cm 4.2 - 5.9 / 3.9 - 5.3 cm LV Systolic Diameter PLAX 2.4 cm LV Fractional Shortening PLAX 51.7 % IVS Diastolic Thickness 1.6 cm 0.6 - 1.0 / 0.6 - 0.9 cm LVPW Diastolic Thickness 1.6 cm 0.6 - 1.0 / 0.6 - 0.9 cm RV Internal Dim ED PLAX 3.6 cm Aortic Root Diameter 3.4 cm LA Systolic Diameter LX 3.5 cm 3.0 - 4.0 / 2.7 - 3.8 cm DOPPLER TR Peak Velocity 269.0 cm/s TR Peak Gradient 28.9 mmHg FINDINGS Left Ventricle Normal left ventricular cavity size. Mild to moderate left ventricular hypertrophy. Left ventricular ejection fraction is estimated at Right Ventricle The right ventricle is normal in size and function. Right Atrium The right atrium is normal in size. Left Atrium The left atrium is normal in size. Mitral Valve Morphologically normal mitral valve. Mild mitral annular calcification. Trace mitral valve regurgitation. Aortic Valve Aortic valve sclerosis. . Mild aortic valve stenosis, mean gradient 18 mmHg, BESSY 1.8 cm. Tricuspid Valve Morphologically normal tricuspid valve. Trace tricuspid valve regurgitation. Tricuspid regurgitation velocities suggest a PAP of 39 mmHg. Pulmonic Valve Morphologically normal pulmonic valve. Trace pulmonary valve regurgitation. Pericardium Normal pericardium without effusion. Aorta Normal ascending aorta dimension. Sahil Swanson (Electronically Signed) Final Date: 02 April 2017 13:01
[2017-04-02] MEDS ORDERED: GENTAMICIN INJ 140 MG in SODIUM CHLORIDE 0.9% 100 ML IV PRN (15:48)
[2017-04-02] MEDS ORDERED: VANCOMYCIN INJ 750 MG in SODIUM CHLORIDE 0.9% 250 ML IV PRN (15:48)
[2017-04-02] MEDS: ENOXAPARIN 30 MG/0.3 ML SYRINGE SUBCUT SCH (17:30)
[2017-04-02] MEDS ORDERED: NIFEdipine 10 MG CAPSULE PO PRN (17:59)
[2017-04-02] MEDS ORDERED: GENTAMICIN INJ 140 MG in SODIUM CHLORIDE 0.9% 100 ML IV ONE (20:00)
[2017-04-02] MEDS ORDERED: VANCOMYCIN INJ 750 MG in SODIUM CHLORIDE 0.9% 250 ML IV ONE (21:00)
[2017-04-03] MEDS: ACETAMINOPHEN 325 MG TABLET PO PRN (04:30)
[2017-04-03 05:26] LABS: Calcium 8.9 MG/DL (8.5-10.1); Magnesium 2.3 MG/DL (1.8-2.4); Osmolality,Calculated 280.7 MOS/KG (273-304); Potassium 4.4 MMOL/L (3.5-5.1)
[2017-04-03 07:50] LABS: Basophils # 0.1 10*3/uL (0.0-0.2); Basophils % 0.5 % (0.0-0.8); Eosinophils # 0.4 10*3/uL (0.0-0.87); Eosinophils % 4.3 % (0.00-10.9); Hematocrit 25.4 VOL% (42.0-52.0); Hemoglobin 8.4 GM/DL (14.0-18.0); Immature Granulocytes Absolute 0.09 #; Lymphocytes # 1.8 10*3/uL (1.4-4.0); Lymphocytes % 19.1 % (21.2-54.2); Mean Corpuscular HGB Conc 33.1 GM/DL (32-36); Mean Corpuscular Hemoglobin 29 PG (27-34); Mean Corpuscular Volume 88.8 FL (87-102); Mean Platelet Volume 9.8 FL (9.6-12.0); Monocytes # 1.3 10*3/uL (0.11-0.8); Monocytes % 13.9 % (1.7-12.7); Neutrophils # 5.6 10*3/uL (1.4-7.4); Neutrophils % 61.2 % (38.7-73.9); Platelet Count 316 T/CUMM (130-400); Red Blood Count 2.86 MC/CUMM (3.8-5.5); Red Cell Distribution Width 15.7 % (9.3-17.3); White Blood Count 9.1 T/CUMM (4-12)
--- NOTE | 2017-04-03 08:08 | Nephrology Progress Note ---
Nephrology - PN: Subj Interval history: Patient complains of feeling weak. Review of systems GI denies nausea or vomiting, pulmonary denies shortness of breath Physical exam general patient is chronically ill-appearing Assessment/plan 1. End-stage renal disease-we will continue hemodialysis 2. Toe gangrene status post toe amputation 3. Staph aureus bacteremia-patient's on vancomycin and gentamicin 3. Diabetes mellitus 4. Anemia-patient's hematocrit is 25%, patient is feeling weak presently if his hematocrit continues to drift down he may do well with the blood transfusion Exam (PN)-Nephrology - Vital Signs Vital signs: Period Temp Pulse Resp BP Sys/Avalos Pulse Ox Last 24 Hr 97.8 F-101.6 F 65-105 13-27 115-162/52-72 92-99 - Lab 04/03/17 07:14 04/03/17 04:35 Most recent lab results Calcium 8.9 MG/DL (8.5-10.1) 04/03/17 04:35 Magnesium 2.3 MG/DL (1.8-2.4) 04/03/17 04:35 Assessment and Plan (1) Gangrene of toe of right foot Status: Acute Assessment and plan: Patient is status post toe amputation Current Visit: Yes (2) Septic shock Status: Acute Current Visit: Yes (3) ESRD (end stage renal disease) on dialysis Status: Acute Assessment and plan: Patient is not dialyzed in about a week, will plan on hemodialysis today Current Visit: No (4) Fever Status: Acute Assessment and plan: Patient has a low-grade temp of around 100.1 presently we will continue IV antibiotics Current Visit: No (5) Anemia Problem details: transfuse on HD tomorrow. Status: Chronic Assessment and plan: Patient's hematocrit around 26%, I am going to start him on EPO Current Visit: No (6) Diabetes mellitus Status: Chronic Assessment and plan: We will monitor with sliding scale Current Visit: No (7) History of hypertension Status: Acute Current Visit: Yes
[2017-04-03] MEDS: ATORVASTATIN 40 MG TABLET PO SCH (09:02)
[2017-04-03] MEDS: CINACALCET 30 MG TABLET PO SCH (09:02)
[2017-04-03] MEDS: SEVELAMER CARBONATE 800 MG TABLET PO SCH ×3 (09:02→17:24)
[2017-04-03] MEDS: PANTOPRAZOLE 40 MG TABLET PO SCH (09:02)
[2017-04-03] MEDS: CALCIUM ACETATE 667 MG CAPSULE PO SCH ×3 (09:02→17:24)
--- NOTE | 2017-04-03 09:47 | Physician Query Form ---
CLICK EDIT DOCUMENT TO SELECT QUERY ANSWER --> OK --> SIGN Clarita Whiteside RN Clinical [place] W) [phone] (f) [phone] [email or web address] PROVIDERS: Make your selection(s) from the choices in EACH section by typing an "x" and enter comments in the comment section. Please use your independent medical judgment in providing your response. This request does not imply that any particular answer is desired or expected. CLINICAL INDICATORS: (Providers should not edit this section) Based on lab results of [id number] on admission. Pt. treated with IV fluids of Normal Saline. Sodium up to 138. Based on the above, could you clarify the appropriate diagnosis, if significant , that supports the above abnormalities and additional evaluation, monitoring, and/or treatment rendered: (x ) Pt. treated for hyponatremia ( ) Pt. not treated for hyponatremia ( ) Other, please specify: ( ) Clinically unable to determine COMMENTS: PLEASE ALSO DOCUMENT RESPONSE IN PROGRESS NOTES AND/OR DISCHARGE SUMMARY Use of terms such as suspected, likely, or probable (associated with a specific diagnosis that is being evaluated, monitored, or treated as if it exists) are acceptable and can be restated in the discharge summary if not ruled out. [facility]
--- NOTE | 2017-04-03 11:19 | Pathology Report from [facility] ---
[facility] [place] # : [id number] PATIENT NAME : Alberto Rico ORDERING DR : Nahum Phillips MD CLINICAL HX: Gangrene RT 2nd toe POST-OP DX: Same SPECIMEN INFO: RT 2nd toe GROSS DESCRIPTION: Received in formalin labeled ALBERTO RICO is a focally gangrenous toe and distal metatarsal measuring 6.5 x 2.0 cm. A digital sales representative section is submitted in one cassette. DIAGNOSIS FOR ALBERTO RICO: RIGHT SECOND TOE, AMPUTATION: Wet gangrene. COLLECTED DATE: 04/02/2017 [facility] [place] DATE: 04/03/2017 ELECTRONICALLY SIGNED BY: Elbert Shirley M.D. 04/03/2017 - 9:43:55 MTDD
--- NOTE | 2017-04-03 11:48 | Hospitalist Progress Note ---
Assessment and Plan - Time spent with patient Time spent with patient: Greater than 30 minutes (1) Gangrene of toe of right foot Status: Acute Assessment and plan: Sepsis has resolved. Continue current management. Agree with antibiotics. Current Visit: Yes (2) Blood bacterial culture positive Status: Acute Assessment and plan: Appears to be MRSA in blood. Will consult infectious disease. Current Visit: Yes (3) ESRD (end stage renal disease) on dialysis Status: Acute Assessment and plan: Continue dialysis. Current Visit: No (4) Ear pain, right Status: Acute Assessment and plan: If pain persists will consider imaging. Current Visit: Yes Hospitalist: Subjective Interval history: Mr. Rico was admitted to the intensive care unit for management of right second toe gangrene. He is status post amputation. He was transferred to the floor in stable. Currently he complains of right ear pain and fever with rigors. No overnight events. Exam - Constitutional Vitals: Period Temp Pulse Resp BP Sys/Avalos Pulse Ox Last 24 Hr 97.8 F-101.6 F 76-105 18-20 115-162/52-72 90-97 General appearance: no acute distress - Head Head exam: Present: normocephalic, atraumatic - Eye Eye exam: Present: EOMI Pupils: Present: TIN - ENT ENT exam: Present: normal exam, normal external ear exam, other (No pain on palpation or manipulation of the right ear) - Neck Neck exam: Present: normal inspection - Respiratory Respiratory exam: Present: clear to auscultation bilaterally. Absent: rhonchi, wheezes - Cardiovascular Cardiovascular exam: Present: regular rate and rhythm. Absent: gallop, rubs, systolic murmur - GI/Abdominal GI/Abdominal exam: Present: normal bowel sounds, soft. Absent: distended, firm , guarding, tenderness, rebound - Extremities Exam Extremities exam: Present: normal inspection, other (Right second toe amputation with wet-to-dry dressing). Absent: calf tenderness, edema Results - Labs CBC & BMP: 04/03/17 07:14 04/03/17 04:35 Lab Results: I have reviewed the past 24 hour labs
--- NOTE | 2017-04-03 12:30 | Event Note ---
General Surgery Progress Note Chief complaint This patient is a 72-year-old man with end-stage renal disease on hemodialysis who is admitted with a necrotizing infection of his right second toe treated with right second toe ray amputation and excisional debridement on 04/01/2017 Interval history Patient with T-max overnight 99.8 and T-max this morning at bedside proximally 100.0. Patient reports of rigors and chills. No pain in right foot. Poor appetite. Physical exam The patient's right second toe wound is clean with good blood supply and no evidence of ongoing necrotic tissue or recurring infection. Second metatarsal noted. Labs Reviewed Blood cultures 1 out of 2 positive for gram positive cocci Wound cultures to isolate some gram-positive cocci Imaging None Assessment and plan Continue local wound care and IV antibiotics. Infectious disease consultation pending per attending. Follow-up cultures final results with sensitivities.
[2017-04-03] MEDS: SODIUM HYPOCHLORITE 0.25% IRRIG 473 ML BOTTLE TOP SCH (15:07)
--- NOTE | 2017-04-03 16:42 | Infectious Disease Consult ---
Assessment and Plan (1) Blood bacterial culture positive Status: Acute Assessment and plan: Not sure yet if this is true infection or contamination, only 1 of 2 sets of blood cultures positive. Fortunately did not staph aureus. Recommendations: Agree with empiric vancomycin. Repeat blood cultures today and follow-up final results of initial blood culture. Thank you very much for the consult. Will follow. Current Visit: Yes (2) Gangrene of toe of right foot Status: Acute Assessment and plan: He status post amputation with hopefully removal of all infected tissue. MSSA as well as 2 different anaerobic gram-positive cocci and being isolated. Continue wound care. Current Visit: Yes (3) Dyslipidemia Status: Acute Current Visit: No (4) ESRD (end stage renal disease) on dialysis Status: Acute Current Visit: No (5) Diabetes mellitus Status: Chronic Current Visit: No (6) Essential (primary) hypertension Status: Chronic Current Visit: No History of Present Illness Chief complaint: Positive blood culture History of present illness: Mr. Rico is a 72 year old male presented to hospital 2 days ago with generalized weakness and diarrhea for about 1 week. He was found to be febrile to 101.1 and admission. He was also found to have wet gangrene to the right second toe. He underwent amputation of that toe. Blood cultures have come out positive for gram-positive cocci. I am asked to assist with management. He has been on empiric vancomycin and gentamicin. This patient has multiple comorbidities including end-stage renal disease on hemodialysis. Today he is feeling a little better. But he still having low-grade fevers, up to 100.6 this morning Home Medications Medication Instructions Recorded Confirmed Type Carvedilol 6.25 mg PO BID 09/28/15 04/01/17 History NIFEdipine [Nifedipine ER] 90 mg PO QAM 09/28/15 04/01/17 History Calcium Acetate 667 mg PO TID W/MEALS 01/06/16 04/01/17 History Cinacalcet HCl [Sensipar] 60 mg PO DAILY 11/08/16 04/01/17 History Sevelamer Carbonate Tab [Renvela 1,600 mg PO TID W/MEALS 11/08/16 04/01/17 History Tab] Atorvastatin Calcium 40 mg PO DAILY 03/29/17 04/01/17 History Diphenoxylate/Atrop 2.5-0.025 2 tablet PO Q6H PRN #20 tablet 03/29/17 04/01/17 Rx [Lomotil Tab] Multivitamin [Multivitamins] 1 each PO DAILY 03/29/17 04/01/17 History Ondansetron [Ondansetron Odt] 4 mg PO Q6H PRN #20 tab.rapdis 03/29/17 04/01/17 Rx glipiZIDE [Glipizide] 10 mg PO DAILY 03/29/17 04/01/17 History Allergies Allergy/AdvReac Type Severity Reaction Status Date / Time No Known Allergies Allergy Verified 04/01/17 12:24 12 point system: reviewed and no additional remarkable complaints except as stated (Per HPI) Medical,Surgical,& Family Hx - Medical History Cardio: History of: Hypertension Neurology: No history of: Cerebrovascular Accident, Seizures HEENT: History of: Eye Problem (Glasses) Endocrine: History of: Diabetes Mellitus (NIDDM) (3-4 years), Dyslipidemia Respiratory: No history of: Respiratory Problems (Flu Vac current [id number]; Current Pneum Vac) Renal: History of: Dialysis (M-W- Dr. Nathan), Renal Failure, Renal Problems Musculoskeletal: History of: Amputation (left big toe) Other: History of: Miscellaneous Medical Problems ([facility]) No history of: Anesthesia Reactions, Cancer - Surgical History Cardiac Surgeries: Sugical HX of: Vascular Access Devices (Lt arm AV Graft) Thoracic Surgeries: Patient denies;: Organ Transplant Neurologic Surgeries: Surgical HX of: Neurologic Surgery (previous head injury, craniotomy in the ) HEENT Surgeries: Surgical HX of: Eye Surgery (Cataract RT/LT) - Family History Family History: Reports;: Family Diabetes, Family Hypertension Denies;: Family Stroke - Social History Smoking Status: Never smoker Frequency of Alcohol Use: None Type of Drug Use: None Infectious Disease Exam H&P - Constitutional Vitals: Vital Signs Temp Pulse Resp BP Pulse Ox 98.7 F 77 17 159/64 90 L 04/03/17 11:23 04/03/17 11:23 04/03/17 13:30 04/03/17 11:23 04/03/17 11:23 Intake and Output 04/03/17 04/03/17 04/03/17 07:59 15:59 23:59 Intake Total 50 / 50 240 / 240 Balance 50 / 50 240 / 240 Intake: Oral 50 / 50 240 / 240 Other: # Voids 1 # Bowel Movements 0 Weight 82.327 kg Patient Weight 04/03/17 23:59 Weight 82.327 kg Exam: General: Patient relatively comfortable, but chronically ill looking HEENT: Mucous membranes pink and moist, anicteric acyanotic, TIN, no oropharyngeal exudates Neck: Supple, no thyroid gland enlargement, no lymphadenopathy Respiratory system: Breath sounds vesicular, no crepitations or wheezes Cardiovascular: Normal S1 and S2, no murmurs appreciated Abdomen: Normal bowel sounds, soft nontender throughout, no organomegaly or mass Genitourinary: No suprapubic pain or bladder distention Extremities: Bandaged right foot Skin: No rash Reports - Labs CBC & BMP: 04/03/17 07:14 04/03/17 04:35 Labs: Laboratory Results - last 24 hr 04/02/17 04/02/17 04/03/17 17:29 20:31 04:35 WBC RBC Hgb Hct MCV MCH MCHC RDW Plt Count MPV Neut % (Auto) Lymph % (Auto) [place] % (Auto) Eos % (Auto) Baso % (Auto) Neut # (Auto) Lymph # (Auto) [place] # (Auto) Eos # (Auto) Baso # (Auto) Immature Gran % Nucleated RBC % Immature Gran # Nucleated RBCs # Sodium 138 Potassium 4.4 Chloride 99 Carbon Dioxide 27 Anion Gap 16.4 H BUN 31 H Creatinine 8.70 H GFR Calculation 7 BUN/Creatinine Ratio 3.00 L Glucose 86 POC Glucose 113 H 103 Calculated Osmolality 280.7 Calcium 8.9 Magnesium 2.3 04/03/17 04/03/17 04/03/17 06:57 07:14 10:57 WBC 9.1 RBC 2.86 L Hgb 8.4 L Hct 25.4 L MCV 88.8 MCH 29 MCHC 33.1 RDW 15.7 Plt Count 316 MPV 9.8 Neut % (Auto) 61.2 Lymph % (Auto) 19.1 L [place] % (Auto) 13.9 H Eos % (Auto) 4.3 Baso % (Auto) 0.5 Neut # (Auto) 5.6 Lymph # (Auto) 1.8 [place] # (Auto) 1.3 H Eos # (Auto) 0.4 Baso # (Auto) 0.1 Immature Gran % 1.0 Nucleated RBC % 0.0 Immature Gran # 0.09 Nucleated RBCs # 0.00 Sodium Potassium Chloride Carbon Dioxide Anion Gap BUN Creatinine GFR Calculation BUN/Creatinine Ratio Glucose POC Glucose 92 115 H Calculated Osmolality Calcium Magnesium - Reports Microbiology: Microbiology 04/01/17 13:11 Blood Culture - Preliminary Blood Gram Positive Cocci 04/01/17 18:43 Abscess Culture - Final Foot - Right Staphylococcus aureus Anaerobic Culture - Preliminary Gram Positive Cocci Gram Positive Cocci#2 04/02/17 Unknown MRSA (PCR) - Final Blood MRSA Negative Staph aureus Negative 04/01/17 13:11 Blood Culture - Preliminary Blood No growth at 1 day - Impressions TTE without mention of endocarditis
[2017-04-03] MEDS: ENOXAPARIN 30 MG/0.3 ML SYRINGE SUBCUT SCH (17:25)
[2017-04-04 05:17] LABS: Basophils # 0.1 10*3/uL (0.0-0.2); Basophils % 0.6 % (0.0-0.8); Eosinophils # 0.4 10*3/uL (0.0-0.87); Eosinophils % 4.2 % (0.00-10.9); Hemoglobin 8.8 GM/DL (14.0-18.0); Immature Granulocytes % 0.7 %; Immature Granulocytes Absolute 0.07 #; Lymphocytes # 2.3 10*3/uL (1.4-4.0); Lymphocytes % 23.5 % (21.2-54.2); Mean Corpuscular HGB Conc 32.6 GM/DL (32-36); Mean Corpuscular Hemoglobin 29 PG (27-34); Mean Corpuscular Volume 89.7 FL (87-102); Mean Platelet Volume 9.5 FL (9.6-12.0); Monocytes # 0.9 10*3/uL (0.11-0.8); Monocytes % 9.3 % (1.7-12.7); Neutrophils # 6.1 10*3/uL (1.4-7.4); Neutrophils % 61.7 % (38.7-73.9); Platelet Count 354 T/CUMM (130-400); Red Blood Count 3.01 MC/CUMM (3.8-5.5); Red Cell Distribution Width 15.4 % (9.3-17.3); White Blood Count 9.9 T/CUMM (4-12)
[2017-04-04 05:42] LABS: Calcium 8.5 MG/DL (8.5-10.1); Osmolality,Calculated 279.8 MOS/KG (273-304); Potassium 4.1 MMOL/L (3.5-5.1)
[2017-04-04 05:48] LABS: Gentamicin,Random 5.9 UG/ML; Vancomycin,Random 17.7 UG/ML
[2017-04-04] MEDS: CALCIUM ACETATE 667 MG CAPSULE PO SCH ×3 (08:11→16:45)
[2017-04-04] MEDS: PANTOPRAZOLE 40 MG TABLET PO SCH (08:12)
[2017-04-04] MEDS: ATORVASTATIN 40 MG TABLET PO SCH (08:12)
[2017-04-04] MEDS: SEVELAMER CARBONATE 800 MG TABLET PO SCH ×3 (08:12→16:45)
[2017-04-04] MEDS: ACETAMINOPHEN 325 MG TABLET PO PRN (08:12)
[2017-04-04] MEDS: CINACALCET 30 MG TABLET PO SCH (08:12)
--- NOTE | 2017-04-04 08:29 | Event Note ---
General Surgery Progress Note Chief complaint This patient is a 72-year-old man with end-stage renal disease on hemodialysis who is admitted with a necrotizing infection of his right second toe treated with right second toe ray amputation and excisional debridement on 04/01/2017 Interval history Patient is afebrile. Multiple cultures from the wound have been positive as have blood cultures. He is doing well overall. Physical exam The patient's right second toe wound is clean with good blood supply and no evidence of ongoing necrotic tissue or recurring infection. Labs Reviewed Blood cultures 1 out of 2 positive for gram positive cocci Wound cultures to isolate some gram-positive cocci and MSSA Imaging None Assessment and plan Continue IV antibiotics and wound care.
--- NOTE | 2017-04-04 09:00 | Nephrology Progress Note ---
Nephrology - PN: Subj Interval history: Patient is feeling better today. He denies nausea or vomiting. Review of systems General-the patient states he is not felt feverish in the past 24 hours Physical exam general the patient is in no acute distress Assessment/plan 1. Toe gangrene status post amputation-we will continue antibiotics 2. End-stage renal disease 3. Sepsis 4. Diabetes mellitus this is controlled Exam (PN)-Nephrology - Vital Signs Vital signs: Period Temp Pulse Resp BP Sys/Avalos Pulse Ox Last 24 Hr 97.5 F-99.7 F 8-88 17-20 134-165/64-80 90-97 - Lab 04/04/17 04:38 04/04/17 04:38 Most recent lab results Calcium 8.5 MG/DL (8.5-10.1) 04/04/17 04:38 Magnesium 2.3 MG/DL (1.8-2.4) 04/03/17 04:35 Assessment and Plan (1) Gangrene of toe of right foot Status: Acute Assessment and plan: Patient is status post toe amputation Current Visit: Yes (2) Septic shock Status: Acute Current Visit: Yes (3) ESRD (end stage renal disease) on dialysis Status: Acute Assessment and plan: Patient is not dialyzed in about a week, will plan on hemodialysis today Current Visit: No (4) Fever Status: Acute Assessment and plan: Patient has a low-grade temp of around 100.1 presently we will continue IV antibiotics Current Visit: No (5) Anemia Problem details: transfuse on HD tomorrow. Status: Chronic Assessment and plan: Patient's hematocrit around 26%, I am going to start him on EPO Current Visit: No (6) Diabetes mellitus Status: Chronic Assessment and plan: We will monitor with sliding scale Current Visit: No (7) History of hypertension Status: Acute Current Visit: Yes
--- NOTE | 2017-04-04 09:02 | Nephrology Progress Note ---
Nephrology - PN: Subj Interval history: Patient continues to complain of right leg pain however she states it is controlled with her present analgesic regimen. Review of systems pulmonary she denies shortness of breath Physical exam general patient is in no acute distress Assessment/plan 1. End-stage renal disease-we will continue hemodialysis support 2. Diabetic foot disease-patient status post amputation 3. Anemia-patient's hematocrit is 27% 4. Diabetes mellitus Exam (PN)-Nephrology - Vital Signs Vital signs: Period Temp Pulse Resp BP Sys/Avalos Pulse Ox Last 24 Hr 97.5 F-99.7 F 8-88 17-20 134-165/64-80 90-97 - Lab 04/04/17 04:38 04/04/17 04:38 Most recent lab results Calcium 8.5 MG/DL (8.5-10.1) 04/04/17 04:38 Magnesium 2.3 MG/DL (1.8-2.4) 04/03/17 04:35 Assessment and Plan (1) Gangrene of toe of right foot Status: Acute Assessment and plan: Patient is status post toe amputation Current Visit: Yes (2) Septic shock Status: Acute Current Visit: Yes (3) ESRD (end stage renal disease) on dialysis Status: Acute Assessment and plan: Patient is not dialyzed in about a week, will plan on hemodialysis today Current Visit: No (4) Fever Status: Acute Assessment and plan: Patient has a low-grade temp of around 100.1 presently we will continue IV antibiotics Current Visit: No (5) Anemia Problem details: transfuse on HD tomorrow. Status: Chronic Assessment and plan: Patient's hematocrit around 26%, I am going to start him on EPO Current Visit: No (6) Diabetes mellitus Status: Chronic Assessment and plan: We will monitor with sliding scale Current Visit: No (7) History of hypertension Status: Acute Current Visit: Yes
[2017-04-04] MEDS: SODIUM HYPOCHLORITE 0.25% IRRIG 473 ML BOTTLE TOP SCH (10:21)
[2017-04-04] MEDS ORDERED: GENTAMICIN INJ 120 MG in SODIUM CHLORIDE 0.9% 100 ML IV PRN (14:00)
--- NOTE | 2017-04-04 14:18 | Infectious Disease Progress ---
Assessment and Plan (1) Blood bacterial culture positive Status: Acute Assessment and plan: MRSE isolated, this would be an contaminant. No need to treat. Current Visit: Yes (2) Gangrene of toe of right foot Status: Acute Assessment and plan: He status post amputation with hopefully removal of all infected tissue. MSSA as well as 2 different anaerobic gram-positive cocci and being isolated. Continue vancomycin pending finalized cultures. Stop gentamicin. Wound care.. Current Visit: Yes (3) Dyslipidemia Status: Acute Current Visit: No (4) ESRD (end stage renal disease) on dialysis Status: Acute Current Visit: No (5) Diabetes mellitus Status: Chronic Current Visit: No (6) Essential (primary) hypertension Status: Chronic Current Visit: No Infectious Disease - PN: Subj Interval history: Patient doing relatively okay, no fever for over 24 hours. Tolerating antibiotics without nausea vomiting or diarrhea. Infectious Disease Exam (PN) - Constitutional Vitals: Temp Pulse Resp BP Pulse Ox 99.0 F 8 L 20 165/73 94 L 04/04/17 06:55 04/04/17 06:55 04/04/17 06:55 04/04/17 06:55 04/04/17 06:55 General appearance: no acute distress Exam: General appearance: no acute distress - Eye Eye exam: Present: EOMI. no icterus Pupils: Present: TIN - ENT ENT exam: no oropharyhgeal exudates - Respiratory Respiratory exam: vesicular BS, no crepitations or wheezes - Cardiovascular Cardiovascular exam: regular rate and rhythm, no murmurs - GI/Abdominal GI/Abdominal exam: normal bowel sounds, soft, non-tender, no organomegaly or mass - Extremities Exam Extremities exam: no edema, right foot bandaged - Skin Skin exam: no rash Results - Labs CBC & BMP: 04/04/17 04:38 04/04/17 04:38 Lab Results: I have reviewed the past 24 hour labs (MRSE from 1 of 2 sets of blood cultures, repeat pending, blood gram-positive cocci growing from foot wound including MSSA)
--- NOTE | 2017-04-04 14:43 | Hospitalist Progress Note ---
Assessment and Plan - Time spent with patient Time spent with patient: Greater than 30 minutes (1) Gangrene of toe of right foot Status: Acute Assessment and plan: Sepsis has resolved. Continue current management. Agree with antibiotics. Current Visit: Yes (2) Blood bacterial culture positive Status: Acute Assessment and plan: Appreciate assistance by infectious disease. Current Visit: Yes (3) ESRD (end stage renal disease) on dialysis Status: Acute Assessment and plan: Continue dialysis. Current Visit: No Hospitalist: Subjective Interval history: T-max 99.7. No complaints in the patient. No overnight events. Exam - Constitutional Vitals: Period Temp Pulse Resp BP Sys/Avalos Pulse Ox Last 24 Hr 97.5 F-99.7 F 8-93 18-21 134-165/70-91 94-97 General appearance: no acute distress - Head Head exam: Present: normocephalic, atraumatic - Eye Eye exam: Present: EOMI Pupils: Present: TIN - ENT ENT exam: Present: normal exam - Neck Neck exam: Present: normal inspection - Respiratory Respiratory exam: Present: clear to auscultation bilaterally. Absent: rhonchi, wheezes - Cardiovascular Cardiovascular exam: Present: regular rate and rhythm. Absent: gallop, rubs, systolic murmur - GI/Abdominal GI/Abdominal exam: Present: normal bowel sounds, soft. Absent: distended, firm , guarding, tenderness, rebound - Extremities Exam Extremities exam: Present: normal inspection, other (Right foot with an surgical dressing.). Absent: calf tenderness, edema Results - Labs CBC & BMP: 04/04/17 04:38 04/04/17 04:38 Lab Results: I have reviewed the past 24 hour labs
[2017-04-04] MEDS: ENOXAPARIN 30 MG/0.3 ML SYRINGE SUBCUT SCH (16:45)
[2017-04-04] MEDS ORDERED: GENTAMICIN INJ 120 MG in PREMIX 1 EACH IV ONE (17:00)
[2017-04-04] MEDS ORDERED: VANCOMYCIN INJ 750 MG in SODIUM CHLORIDE 0.9% 250 ML IV ONE (18:00)
[2017-04-05 05:09] LABS: Basophils % 0.4 % (0.0-0.8); Eosinophils # 0.5 10*3/uL (0.0-0.87); Eosinophils % 4.8 % (0.00-10.9); Hematocrit 29.5 VOL% (42.0-52.0); Hemoglobin 9.5 GM/DL (14.0-18.0); Immature Granulocytes % 0.6 %; Immature Granulocytes Absolute 0.06 #; Lymphocytes # 1.9 10*3/uL (1.4-4.0); Lymphocytes % 19.8 % (21.2-54.2); Mean Corpuscular HGB Conc 32.2 GM/DL (32-36); Mean Corpuscular Hemoglobin 29 PG (27-34); Mean Corpuscular Volume 89.9 FL (87-102); Mean Platelet Volume 9.9 FL (9.6-12.0); Monocytes # 0.8 10*3/uL (0.11-0.8); Monocytes % 8.3 % (1.7-12.7); Neutrophils # 6.2 10*3/uL (1.4-7.4); Neutrophils % 66.1 % (38.7-73.9); Platelet Count 311 T/CUMM (130-400); Red Blood Count 3.28 MC/CUMM (3.8-5.5); Red Cell Distribution Width 15.6 % (9.3-17.3); White Blood Count 9.4 T/CUMM (4-12)
[2017-04-05 05:28] LABS: Calcium 8.4 MG/DL (8.5-10.1); Osmolality,Calculated 274.7 MOS/KG (273-304); Potassium 4.7 MMOL/L (3.5-5.1)
[2017-04-05] MEDS: CINACALCET 30 MG TABLET PO SCH (08:51)
[2017-04-05] MEDS: ATORVASTATIN 40 MG TABLET PO SCH (08:51)
[2017-04-05] MEDS: CALCIUM ACETATE 667 MG CAPSULE PO SCH ×3 (08:51→17:08)
[2017-04-05] MEDS: SEVELAMER CARBONATE 800 MG TABLET PO SCH ×3 (08:51→17:08)
[2017-04-05] MEDS: PANTOPRAZOLE 40 MG TABLET PO SCH (08:52)
[2017-04-05] MEDS: SODIUM HYPOCHLORITE 0.25% IRRIG 473 ML BOTTLE TOP SCH (09:07)
--- NOTE | 2017-04-05 11:29 | Infectious Disease Progress ---
Assessment and Plan (1) Blood bacterial culture positive Status: Acute Assessment and plan: MRSE isolated, this would be an contaminant. No need to treat. Current Visit: Yes (2) Gangrene of toe of right foot Status: Acute Assessment and plan: He status post amputation with hopefully removal of all infected tissue. MSSA cultured. THe lab had reported 2 different anaerobic gram-positive cocci yesterday but the final anaerobic culture was negative. REcommendations: 1. De-escalate from vancomycin to Unasyn, renally dosed at 1.5g q12h 2. When he is ready to go home, can switch to oral Augmentin, renally dosed at 500mg daily. 3. Antibiotic Tx to be continued until 05/12 Current Visit: Yes (3) Dyslipidemia Status: Acute Current Visit: No (4) ESRD (end stage renal disease) on dialysis Status: Acute Current Visit: No (5) Diabetes mellitus Status: Chronic Current Visit: No (6) Essential (primary) hypertension Status: Chronic Current Visit: No Infectious Disease - PN: Subj Interval history: Patient without complaints today. Afebrile. No N, V, D. Infectious Disease Exam (PN) - Constitutional Vitals: Temp Pulse Resp BP Pulse Ox 98.4 F 84 19 164/77 96 04/05/17 07:20 04/05/17 07:20 04/05/17 07:20 04/05/17 07:20 04/05/17 07:20 General appearance: no acute distress Exam: General appearance: no acute distress - Eye Eye exam: Present: EOMI. no icterus Pupils: Present: TIN - ENT ENT exam: no oral exudates - Respiratory Respiratory exam: vesicular BS, no crepitations or wheezes - Cardiovascular Cardiovascular exam: regular rate and rhythm, no murmurs - GI/Abdominal GI/Abdominal exam: normal bowel sounds, soft, non-tender, no organomegaly or mass - Extremities Exam Extremities exam: no edema, right foot with open wound where 2nd toe was amputated. The wound is healthy pink, no pus or necrotic tissue observed. - Skin Skin exam: no rash Results - Labs CBC & BMP: 04/05/17 03:57 04/05/17 03:57 Lab Results: I have reviewed the past 24 hour labs (only MSSA cultured from the foot; repeat blood cultures NGTD)
--- NOTE | 2017-04-05 11:53 | Hospitalist Progress Note ---
Assessment and Plan - Time spent with patient Time spent with patient: Greater than 30 minutes (1) Gangrene of toe of right foot Status: Acute Assessment and plan: Sepsis has resolved. Continue current management. Agree with antibiotics. Current Visit: Yes (2) Blood bacterial culture positive Status: Acute Assessment and plan: Appreciate assistance by infectious disease. Current Visit: Yes (3) ESRD (end stage renal disease) on dialysis Status: Acute Assessment and plan: Continue dialysis. Current Visit: No (4) Weakness Status: Acute Assessment and plan: No focal neurological deficits. Will get PT and OT to evaluate. Will attempt to obtain an MRI. Current Visit: Yes Hospitalist: Subjective Interval history: Patient's family member reports he is very weak and continues to remain lethargic. The patient has no complaints and does appear to be lethargic. He also states he has no appetite. When asked further if he has any dysphagia or nausea vomiting he appears to be stumped by these questions. Exam - Constitutional Vitals: Period Temp Pulse Resp BP Sys/Avalos Pulse Ox Last 24 Hr 98.1 F-100.0 F 78-93 16-21 126-170/51-91 95-100 General appearance: no acute distress - Head Head exam: Present: normocephalic, atraumatic - Eye Eye exam: Present: EOMI Pupils: Present: TIN - ENT ENT exam: Present: normal exam - Neck Neck exam: Present: normal inspection - Respiratory Respiratory exam: Present: clear to auscultation bilaterally. Absent: rhonchi, wheezes - Cardiovascular Cardiovascular exam: Present: regular rate and rhythm. Absent: gallop, rubs, systolic murmur - GI/Abdominal GI/Abdominal exam: Present: normal bowel sounds, soft. Absent: distended, firm , guarding, tenderness, rebound - Extremities Exam Extremities exam: Present: normal inspection. Absent: calf tenderness, edema - Neurological Exam Neurological exam: Present: CN II-XII intact, other (He does have global weakness bilaterally upper and lower extremity at about 5- out of 5) Results - Labs CBC & BMP: 04/05/17 03:57 04/05/17 03:57 Lab Results: I have reviewed the past 24 hour labs
[2017-04-05] MEDS: AMPICILLIN/SULBACTAM 1,500 MG in SODIUM CHLORIDE 0.9% 100 ML IV SCH (12:00)
--- NOTE | 2017-04-05 16:48 | Nephrology Progress Note ---
Nephrology - PN: Subj Interval history: Patient is feeling better. He denies shortness of breath. Review of systems GI denies nausea or vomiting Physical exam general the patient is in no acute distress, he has no edema Assessment/plan 1. Toe gangrene status post amputation will continue antibiotics 2. End-stage renal disease we will continue hemodialysis support 3. Diabetes mellitus this is controlled 4. Hypertension we will continue present antihypertensives Exam (PN)-Nephrology - Vital Signs Vital signs: Period Temp Pulse Resp BP Sys/Avalos Pulse Ox Last 24 Hr 98.1 F-100.0 F 80-92 16-20 131-183/67-85 95-100 - Lab 04/05/17 03:57 04/05/17 03:57 Most recent lab results Calcium 8.4 MG/DL (8.5-10.1) L 04/05/17 03:57 Magnesium 2.3 MG/DL (1.8-2.4) 04/03/17 04:35 Assessment and Plan (1) Gangrene of toe of right foot Status: Acute Assessment and plan: Patient is status post toe amputation Current Visit: Yes (2) Septic shock Status: Acute Current Visit: Yes (3) ESRD (end stage renal disease) on dialysis Status: Acute Assessment and plan: Patient is not dialyzed in about a week, will plan on hemodialysis today Current Visit: No (4) Fever Status: Acute Assessment and plan: Patient has a low-grade temp of around 100.1 presently we will continue IV antibiotics Current Visit: No (5) Anemia Problem details: transfuse on HD tomorrow. Status: Chronic Assessment and plan: Patient's hematocrit around 26%, I am going to start him on EPO Current Visit: No (6) Diabetes mellitus Status: Chronic Assessment and plan: We will monitor with sliding scale Current Visit: No (7) History of hypertension Status: Acute Current Visit: Yes
[2017-04-05] MEDS: ENOXAPARIN 30 MG/0.3 ML SYRINGE SUBCUT SCH (17:09)
[2017-04-06] MEDS: AMPICILLIN/SULBACTAM 1,500 MG in SODIUM CHLORIDE 0.9% 100 ML IV SCH ×2 (00:02→16:10)
[2017-04-06 06:29] LABS: Basophils # 0.1 10*3/uL (0.0-0.2); Basophils % 0.5 % (0.0-0.8); Eosinophils # 0.5 10*3/uL (0.0-0.87); Eosinophils % 4.8 % (0.00-10.9); Hematocrit 26.9 VOL% (42.0-52.0); Hemoglobin 8.7 GM/DL (14.0-18.0); Immature Granulocytes % 0.6 %; Immature Granulocytes Absolute 0.06 #; Lymphocytes % 20.1 % (21.2-54.2); Mean Corpuscular HGB Conc 32.3 GM/DL (32-36); Mean Corpuscular Hemoglobin 29 PG (27-34); Mean Platelet Volume 9.6 FL (9.6-12.0); Monocytes # 0.7 10*3/uL (0.11-0.8); Monocytes % 6.8 % (1.7-12.7); Neutrophils # 6.8 10*3/uL (1.4-7.4); Neutrophils % 67.2 % (38.7-73.9); Platelet Count 320 T/CUMM (130-400); Red Blood Count 2.99 MC/CUMM (3.8-5.5); Red Cell Distribution Width 15.4 % (9.3-17.3); White Blood Count 10.1 T/CUMM (4-12)
--- NOTE | 2017-04-06 06:40 | Event Note ---
General Surgery Progress Note Chief complaint This patient is a 72-year-old man with end-stage renal disease on hemodialysis who is admitted with a necrotizing infection of his right second toe treated with right second toe ray amputation and excisional debridement on 04/01/2017 Interval history Patient is afebrile. No issues overnight Physical exam The patient's right second toe wound is clean with good blood supply and no evidence of ongoing necrotic tissue or recurring infection. Labs Reviewed, white blood cell count is normal Imaging None Assessment and plan Continue wound care and antibiotics per infectious disease. The patient is discharged home he needs to pack his wound twice daily with Dakin's wet-to-dry dressing and keep weight off of this foot. I will see him back in clinic in 2 weeks.
[2017-04-06 07:00] LABS: Calcium 8.7 MG/DL (8.5-10.1); Osmolality,Calculated 278.7 MOS/KG (273-304); Potassium 4.5 MMOL/L (3.5-5.1)
[2017-04-06] MEDS: SEVELAMER CARBONATE 800 MG TABLET PO SCH ×3 (07:59→16:10)
[2017-04-06] MEDS: PANTOPRAZOLE 40 MG TABLET PO SCH (07:59)
[2017-04-06] MEDS: CINACALCET 30 MG TABLET PO SCH (07:59)
[2017-04-06] MEDS: CALCIUM ACETATE 667 MG CAPSULE PO SCH ×3 (08:00→16:10)
[2017-04-06] MEDS: ATORVASTATIN 40 MG TABLET PO SCH (08:00)
[2017-04-06] MEDS: SODIUM HYPOCHLORITE 0.25% IRRIG 473 ML BOTTLE TOP SCH (08:01)
--- NOTE | 2017-04-06 10:58 | Infectious Disease Progress ---
Assessment and Plan (1) Blood bacterial culture positive Status: Acute Assessment and plan: MRSE isolated, this would be an contaminant. No need to treat. Current Visit: Yes (2) Gangrene of toe of right foot Status: Acute Assessment and plan: He status post amputation with hopefully removal of all infected tissue. MSSA cultured. THe lab had reported 2 different anaerobic gram-positive cocci yesterday but the final anaerobic culture was negative. REcommendations: Okay to go home today from ID standpoint on oral Augmentin, renally dosed at 500mg daily. Per my discussion with Dr. Phillips, all the infected tissue was removed so he can go home on 2 weeks of this antibiotic. He will see Dr. Phillips in 2 weeks. I can see him in the outpatient setting if necessary. Current Visit: Yes (3) Dyslipidemia Status: Acute Current Visit: No (4) ESRD (end stage renal disease) on dialysis Status: Inactive Current Visit: No (5) Diabetes mellitus Status: Chronic Current Visit: No (6) Essential (primary) hypertension Status: Chronic Current Visit: No Infectious Disease - PN: Subj Interval history: Patient doing okay no new events. Afebrile. Tolerating antibiotic without nausea vomiting or diarrhea. Infectious Disease Exam (PN) - Constitutional Vitals: Temp Pulse Resp BP Pulse Ox 99.0 F 93 H 18 146/79 93 L 04/06/17 06:59 04/06/17 06:59 04/06/17 06:59 04/06/17 06:59 04/06/17 06:59 General appearance: no acute distress Exam: General appearance: no acute distress - Eye Eye exam: Present: EOMI. no icterus Pupils: Present: TIN - ENT ENT exam: no oral exudates - Respiratory Respiratory exam: vesicular BS, no crepitations or wheezes - Cardiovascular Cardiovascular exam: regular rate and rhythm, no murmurs - GI/Abdominal GI/Abdominal exam: normal bowel sounds, soft, non-tender, no organomegaly or mass - Extremities Exam Extremities exam: Right foot wound bandaged - Skin Skin exam: no rash Results - Labs CBC & BMP: 04/06/17 05:35 04/06/17 05:35 Lab Results: I have reviewed the past 24 hour labs Specialty Discharge - Follow Up or Referrals Follow up with: Nahum Phillips MD [Physician] - 04/18/17 2:15 pm
--- NOTE | 2017-04-06 11:18 | Nephrology Progress Note ---
Nephrology - PN: Subj Interval history: Patient denies shortness of breath. Review of systems musculoskeletal-he complains of pain on his feet Physical exam general the patient is in no acute distress Assessment/plan 1. Toe gangrene status post amputation of his toe-he is to continue p.o. antibiotics as an outpatient 2. End-stage renal disease-we will continue hemodialysis support 3. Diabetes mellitus 4. Sepsis Exam (PN)-Nephrology - Vital Signs Vital signs: Period Temp Pulse Resp BP Sys/Avalos Pulse Ox Last 24 Hr 98.7 F-102.0 F 82-93 16-20 146-184/72-92 93-99 - Lab 04/06/17 05:35 04/06/17 05:35 Most recent lab results Calcium 8.7 MG/DL (8.5-10.1) 04/06/17 05:35 Magnesium 2.3 MG/DL (1.8-2.4) 04/03/17 04:35 Assessment and Plan (1) Gangrene of toe of right foot Status: Acute Assessment and plan: Patient is status post toe amputation Current Visit: Yes (2) Septic shock Status: Acute Current Visit: Yes (3) ESRD (end stage renal disease) on dialysis Status: Inactive Assessment and plan: Patient is not dialyzed in about a week, will plan on hemodialysis today Current Visit: No (4) Fever Status: Acute Assessment and plan: Patient has a low-grade temp of around 100.1 presently we will continue IV antibiotics Current Visit: No (5) Anemia Problem details: transfuse on HD tomorrow. Status: Chronic Assessment and plan: Patient's hematocrit around 26%, I am going to start him on EPO Current Visit: No (6) Diabetes mellitus Status: Chronic Assessment and plan: We will monitor with sliding scale Current Visit: No (7) History of hypertension Status: Acute Current Visit: Yes Specialty Discharge - Follow Up or Referrals Follow up with: Nahum Phillips MD [Physician] - 04/18/17 2:15 pm
--- NOTE | 2017-04-06 12:02 | Hospitalist Progress Note ---
Assessment and Plan - Time spent with patient Time spent with patient: Greater than 30 minutes (1) Gangrene of toe of right foot Status: Acute Assessment and plan: Continue current management. Agree with antibiotics. Current Visit: Yes (2) Blood bacterial culture positive Status: Acute Assessment and plan: Appreciate assistance by infectious disease. Appears to be a contaminant. Current Visit: Yes (3) Weakness Status: Acute Assessment and plan: No focal neurological deficits. Will get PT and OT to evaluate. Unable to obtain MRI due to metallic hardware in skull. Current Visit: Yes Hospitalist: Subjective Interval history: Tmax of 102. Patients family reports his mentation is somewhat improving. He remains somewhat lethargic, though not much change from yesterday. Exam - Constitutional Vitals: Period Temp Pulse Resp BP Sys/Avalos Pulse Ox Last 24 Hr 98.7 F-102.0 F 82-93 16-20 146-184/72-92 93-99 General appearance: no acute distress - Head Head exam: Present: normal inspection, other (frontal depression in skull) - Eye Eye exam: Present: EOMI Pupils: Present: TIN - ENT ENT exam: Present: normal exam - Neck Neck exam: Present: normal inspection - Respiratory Respiratory exam: Present: clear to auscultation bilaterally. Absent: rhonchi, wheezes - Cardiovascular Cardiovascular exam: Present: regular rate and rhythm. Absent: gallop, rubs, systolic murmur - GI/Abdominal GI/Abdominal exam: Present: normal bowel sounds, soft. Absent: distended, firm , guarding, tenderness, rebound - Extremities Exam Extremities exam: Present: normal inspection, other (right foot within surgical dressing). Absent: calf tenderness, edema Results - Labs CBC & BMP: 04/06/17 05:35 04/06/17 05:35 Lab Results: I have reviewed the past 24 hour labs Specialty Discharge - Follow Up or Referrals Follow up with: Nahum Phillips MD [Physician] - 04/18/17 2:15 pm
--- NOTE | 2017-04-06 14:12 | Dialysis Note ---
Dialysis Note - Dialysis Note Patient is seen on dialysis is tolerating the procedure. Blood pressure is 152/ 86. Perivascular regular rate. Lungs clear.
[2017-04-06] MEDS: ENOXAPARIN 30 MG/0.3 ML SYRINGE SUBCUT SCH (16:10)
[2017-04-07] MEDS: AMPICILLIN/SULBACTAM 1,500 MG in SODIUM CHLORIDE 0.9% 100 ML IV SCH ×2 (00:48→12:48)
--- NOTE | 2017-04-07 08:00 | Nephrology Progress Note ---
Nephrology - PN: Subj Interval history: Patient is resting comfortably no acute changes. Tolerated dialysis on yesterday. Exam (PN)-Nephrology - Vital Signs Vital signs: Period Temp Pulse Resp BP Sys/Avalos Pulse Ox Last 24 Hr 96.9 F-99.5 F 77-115 18-20 141-164/61-110 93-99 - General Appearance General appearance: well-developed, well-nourished EENT: ATNC Neck: supple Respiratory: clear Cardiology: no edema, regular rate, regular rhythm Gastrointestinal: normoactive bowel sounds Neurologic: alert and oriented x3 Musculoskeletal: deformities (Toe amputation noted on both feet) - Lab 04/06/17 05:35 04/06/17 05:35 Most recent lab results Calcium 8.7 MG/DL (8.5-10.1) 04/06/17 05:35 Magnesium 2.3 MG/DL (1.8-2.4) 04/03/17 04:35 Assessment and Plan (1) Essential (primary) hypertension Status: Chronic Current Visit: No (2) End stage renal disease Status: Chronic Assessment and plan: Continue with scheduled hemodialysis Current Visit: No (3) Gangrenous toe Problem details: Evaluated and treated by Dr Phillips today with amputation. Status: Resolved Current Visit: No (4) Diabetes mellitus Status: Chronic Current Visit: No Qualifiers: Diabetes mellitus type: type 2 Diabetes mellitus complication detail: with peripheral angiopathy with gangrene Specialty Discharge - Follow Up or Referrals Follow up with: Nahum Phillips MD [Physician] - 04/18/17 2:15 pm
[2017-04-07 08:14] LABS: Basophils % 0.4 % (0.0-0.8); Eosinophils # 0.4 10*3/uL (0.0-0.87); Eosinophils % 4.9 % (0.00-10.9); Immature Granulocytes % 0.5 %; Immature Granulocytes Absolute 0.04 #; Lymphocytes # 1.5 10*3/uL (1.4-4.0); Lymphocytes % 18.5 % (21.2-54.2); Mean Corpuscular HGB Conc 31.1 GM/DL (32-36); Mean Corpuscular Hemoglobin 29 PG (27-34); Mean Corpuscular Volume 93.3 FL (87-102); Monocytes # 0.5 10*3/uL (0.11-0.8); Monocytes % 6.6 % (1.7-12.7); Neutrophils # 5.6 10*3/uL (1.4-7.4); Neutrophils % 69.1 % (38.7-73.9); Red Cell Distribution Width 15.7 % (9.3-17.3); White Blood Count 8.2 T/CUMM (4-12)
[2017-04-07 08:21] LABS: Calcium 8.8 MG/DL (8.5-10.1); Osmolality,Calculated 269.1 MOS/KG (273-304); Potassium 5.2 MMOL/L (3.5-5.1)
[2017-04-07 08:29] LABS: Hemoglobin 10.9 GM/DL (14.0-18.0); Platelet Count 234 T/CUMM (130-400); Red Blood Count 3.75 MC/CUMM (3.8-5.5)
--- NOTE | 2017-04-07 09:05 | Event Note ---
He and his family have no complaints this morning. He is afebrile. His dressing is dry. Discharge and wound care arrangements have already been made by Dr. Phillips who plans to follow him up in the office.
[2017-04-07] MEDS: SEVELAMER CARBONATE 800 MG TABLET PO SCH ×3 (09:46→16:57)
[2017-04-07] MEDS: CINACALCET 30 MG TABLET PO SCH (09:46)
[2017-04-07] MEDS: ATORVASTATIN 40 MG TABLET PO SCH (09:46)
[2017-04-07] MEDS: CALCIUM ACETATE 667 MG CAPSULE PO SCH ×3 (09:47→16:57)
[2017-04-07] MEDS: PANTOPRAZOLE 40 MG TABLET PO SCH (09:47)
--- NOTE | 2017-04-07 10:21 | Hospitalist Progress Note ---
Assessment and Plan - Time spent with patient Time spent with patient: Greater than 30 minutes (1) Gangrene of toe of right foot Status: Acute Assessment and plan: Continue current management. Agree with antibiotics. Current Visit: Yes (2) Weakness Status: Acute Assessment and plan: No focal neurological deficits. Will get PT and OT to evaluate. Unable to obtain MRI due to metallic hardware in skull. Current Visit: Yes (3) Decreased oral intake Status: Acute Assessment and plan: Continue protein supplements. Current Visit: Yes (4) End stage renal disease on dialysis Status: Acute Assessment and plan: Continue dialysis. Current Visit: No Hospitalist: Subjective Interval history: Patient had a T-max of 99.5 overnight. Family reports he is not eating much however are not interested in the PEG tube. Patient denies any dysphasia or swallowing difficulty. He states he has early satiety. Denies any postprandial abdominal pain. Exam - Constitutional Vitals: Period Temp Pulse Resp BP Sys/Avalos Pulse Ox Last 24 Hr 96.9 F-99.5 F 77-115 16-20 141-164/61-110 92-99 General appearance: no acute distress - Eye Eye exam: Present: EOMI Pupils: Present: TIN - ENT ENT exam: Present: normal exam - Neck Neck exam: Present: normal inspection - Respiratory Respiratory exam: Present: clear to auscultation bilaterally. Absent: rhonchi, wheezes - Cardiovascular Cardiovascular exam: Present: regular rate and rhythm. Absent: gallop, rubs, systolic murmur - GI/Abdominal GI/Abdominal exam: Present: normal bowel sounds, soft. Absent: distended, firm , guarding, tenderness, rebound - Extremities Exam Extremities exam: Present: normal inspection, other (Right leg with an surgical dressing.). Absent: calf tenderness, edema Results - Labs CBC & BMP: 04/07/17 07:31 04/07/17 07:31 Lab Results: I have reviewed the past 24 hour labs Specialty Discharge - Follow Up or Referrals Follow up with: Nahum Phillips MD [Physician] - 04/18/17 2:15 pm
[2017-04-07] MEDS: SODIUM HYPOCHLORITE 0.25% IRRIG 473 ML BOTTLE TOP SCH (12:51)
[2017-04-07] MEDS: ENOXAPARIN 30 MG/0.3 ML SYRINGE SUBCUT SCH (16:57)
[2017-04-08] MEDS: AMPICILLIN/SULBACTAM 1,500 MG in SODIUM CHLORIDE 0.9% 100 ML IV SCH ×2 (00:57→11:31)
[2017-04-08] MEDS: ATORVASTATIN 40 MG TABLET PO SCH (08:48)
[2017-04-08] MEDS: CINACALCET 30 MG TABLET PO SCH (08:48)
[2017-04-08] MEDS: SEVELAMER CARBONATE 800 MG TABLET PO SCH ×3 (08:48→16:38)
[2017-04-08] MEDS: CALCIUM ACETATE 667 MG CAPSULE PO SCH ×3 (08:48→16:38)
[2017-04-08] MEDS: PANTOPRAZOLE 40 MG TABLET PO SCH (08:49)
--- NOTE | 2017-04-08 09:06 | Nephrology Progress Note ---
Nephrology - PN: Subj Interval history: The patient is resting visiting with his family. However family is concerned that patient is not eating much. As the patient to take a few bites of breakfast he states he is already eaten. Exam (PN)-Nephrology - Vital Signs Vital signs: Period Temp Pulse Resp BP Sys/Avalos Pulse Ox Last 24 Hr 96.9 F-99.6 F 82-93 14-21 112-156/54-72 92-98 - General Appearance General appearance: chronically ill, frail EENT: ATNC Neck: supple Respiratory: clear Cardiology: regular rate, regular rhythm Gastrointestinal: normoactive bowel sounds, no tenderness Neurologic: alert and oriented x3 - Lab 04/07/17 07:31 04/07/17 07:31 Most recent lab results Calcium 8.8 MG/DL (8.5-10.1) 04/07/17 07:31 Magnesium 2.3 MG/DL (1.8-2.4) 04/03/17 04:35 Assessment and Plan (1) Essential (primary) hypertension Status: Chronic Current Visit: No (2) End stage renal disease Status: Chronic Assessment and plan: Continue with scheduled hemodialysis Current Visit: No (3) Diabetes mellitus Status: Chronic Current Visit: No Qualifiers: Diabetes mellitus type: type 2 Diabetes mellitus complication detail: with peripheral angiopathy with gangrene Specialty Discharge - Follow Up or Referrals Follow up with: Nahum Phillips MD [Physician] - 04/18/17 2:15 pm
--- NOTE | 2017-04-08 10:38 | Hospitalist Progress Note ---
Assessment and Plan - Time spent with patient Time spent with patient: Greater than 30 minutes (1) Gangrene of toe of right foot Status: Acute Assessment and plan: Continue current management. Agree with antibiotics. Current Visit: Yes (2) Weakness Status: Acute Assessment and plan: No focal neurological deficits. Will get PT and OT to evaluate. Unable to obtain MRI due to metallic hardware in skull. Current Visit: Yes (3) Decreased oral intake Status: Acute Assessment and plan: Continue protein supplements. Current Visit: Yes (4) End stage renal disease on dialysis Status: Acute Assessment and plan: Continue dialysis. Current Visit: No Hospitalist: Subjective Interval history: No complaints overnight events. Exam - Constitutional Vitals: Period Temp Pulse Resp BP Sys/Avalos Pulse Ox Last 24 Hr 96.9 F-99.6 F 82-93 14-21 112-156/54-72 92-98 General appearance: no acute distress - Head Head exam: Present: normocephalic, atraumatic - Eye Eye exam: Present: EOMI Pupils: Present: TIN - ENT ENT exam: Present: normal exam - Neck Neck exam: Present: normal inspection - Respiratory Respiratory exam: Present: clear to auscultation bilaterally. Absent: rhonchi, wheezes - Cardiovascular Cardiovascular exam: Present: regular rate and rhythm. Absent: gallop, rubs, systolic murmur - GI/Abdominal GI/Abdominal exam: Present: normal bowel sounds, soft. Absent: distended, firm , guarding, tenderness, rebound - Extremities Exam Extremities exam: Present: normal inspection. Absent: calf tenderness, edema Results - Labs CBC & BMP: 04/07/17 07:31 04/07/17 07:31 Lab Results: I have reviewed the past 24 hour labs Specialty Discharge - Follow Up or Referrals Follow up with: Nahum Phillips MD [Physician] - 04/18/17 2:15 pm
[2017-04-08] MEDS: SODIUM HYPOCHLORITE 0.25% IRRIG 473 ML BOTTLE TOP SCH (11:20)
[2017-04-08] MEDS: ENOXAPARIN 30 MG/0.3 ML SYRINGE SUBCUT SCH (16:38)
[2017-04-09] MEDS: AMPICILLIN/SULBACTAM 1,500 MG in SODIUM CHLORIDE 0.9% 100 ML IV SCH ×2 (00:57→13:30)
[2017-04-09 07:17] VITALS: BP 161/75
[2017-04-09] MEDS: ACETAMINOPHEN 325 MG TABLET PO PRN (09:14)
[2017-04-09] MEDS: ATORVASTATIN 40 MG TABLET PO SCH (09:15)
[2017-04-09] MEDS: SODIUM HYPOCHLORITE 0.25% IRRIG 473 ML BOTTLE TOP SCH (09:20)
--- NOTE | 2017-04-09 09:31 | Event Note ---
He has no complaints. He is afebrile. His amputation site looks okay. I think he is fine for discharge when ready medically. He can follow-up with Dr. Phillips in the clinic.
[2017-04-09] MEDS: SEVELAMER CARBONATE 800 MG TABLET PO SCH ×2 (10:15→12:01)
[2017-04-09] MEDS: CALCIUM ACETATE 667 MG CAPSULE PO SCH ×2 (10:15→12:01)
[2017-04-09] MEDS: PANTOPRAZOLE 40 MG TABLET PO SCH (10:16)
[2017-04-09] MEDS: CINACALCET 30 MG TABLET PO SCH (10:16)
--- NOTE | 2017-04-09 12:04 | Discharge Summary ---
Hospital Course - Hospital Course Hospital Course: Mr. Rico was admitted for evaluation of multiple falls and encephalopathy. While in the ER the patient was evaluated by surgery for a gangrenous right second toe. He was taken to the operating room the day of admission and had right second toe ray amputation with excisional debridement of necrotic skin and subcutaneous tissue. He was initiated on vancomycin and gentamicin by the admitting physician. Nephrology was consulted to manage his hemodialysis. Patient was continued on antibiotics and blood culture returned positive which was felt to be secondary to contamination based on the species and fact that it only appeared in one bottle. Infectious disease was following the patient. Foot culture however returned Staphylococcus aureus which was MRSA negative. Patient's antibiotic regimen was simplified to Unasyn. Patient remained hospitalized until his fever resolved. His encephalopathy improved and this was felt to be secondary to an infectious process. Patient will be discharged with Augmentin for a total of 2 additional weeks. By discharge he had met maximum benefit of hospitalization. I spent 36 minutes coordinating this discharge. - Time spent with patient Time with patient DS: Greater than 30 minutes Diagnosis - Discharge Diagnosis (1) Gangrene of toe of right foot Status: Acute (2) Weakness Status: Acute (3) Decreased oral intake Status: Acute (4) End stage renal disease on dialysis Status: Acute Specialty Discharge - Follow Up or Referrals Follow up with: Nahum Phillips MD [Physician] - 04/18/17 2:15 pm (outpatient wound care clinic april 19 9:15) Discharge Plan - Discharge Data Disposition: Disch To Home/Self Care Condition at Discharge: Stable Discharge Diet: advance to your usual diet Activity: resume usual activities as tolerated - Discharge Medications New Amoxicillin/Clav Tab [Augmentin Tab] 500 mg PO DAILY #12 tablet Continue Carvedilol 6.25 mg PO BID NIFEdipine [Nifedipine ER] 90 mg PO QAM Calcium Acetate 667 mg PO TID W/MEALS Sevelamer Carbonate Tab [Renvela Tab] 1,600 mg PO TID W/MEALS Cinacalcet HCl [Sensipar] 60 mg PO DAILY Diphenoxylate/Atrop 2.5-0.025 [Lomotil Tab] 2 tablet PO Q6H PRN #20 tablet PRN Reason: Diarrhea Ondansetron [Ondansetron Odt] 4 mg PO Q6H PRN #20 tab.rapdis PRN Reason: Nausea Atorvastatin Calcium 40 mg PO DAILY Multivitamin [Multivitamins] 1 each PO DAILY Discontinued glipiZIDE [Glipizide] 10 mg PO DAILY - Follow Up or Referral Follow Up: Nahum Phillips MD [Physician] - 04/18/17 2:15 pm (outpatient wound care clinic april 19 9:15) - Forms/Instructions Instructions: Toe Amputation (DC) Exam - Constitutional Vitals: Period Temp Pulse Resp BP Sys/Avalos Pulse Ox Last 24 Hr 97.2 F-98.3 F 77-92 16-18 147-161/72-82 95-98 General appearance: normal weight, no acute distress - Head Head exam: Present: normal inspection, normocephalic, atraumatic - Eye Eye exam: Present: EOMI Pupils: Present: TIN - ENT ENT exam: Present: normal exam - Neck Neck exam: Present: normal inspection - Respiratory Respiratory exam: Present: clear to auscultation bilaterally. Absent: accessory muscle use, chest wall tenderness, prolonged expiratory phase, wheezes - Cardiovascular Cardiovascular exam: Present: regular rate and rhythm. Absent: bradycardia, irregular rhythm, systolic murmur - GI/Abdominal GI/Abdominal exam: Present: normal bowel sounds - Extremities Exam Extremities exam: Present: normal inspection, other (right foot within surgical dressing) Discharge Results Labs on day of discharge: Labs from last 24 hours 04/09/17 04/08/17 04/08/17 06:46 20:56 15:49 POC Glucose 80 89 79 04/08/17 11:48 POC Glucose 80 DS: Provider Date of admission: 04/01/17 14:20 Primary care physician: Jovani Tapia Jr., MD Attending physician on admission: Lisa Ochoa MD Consults: 04/01/17 13:02 Consult to Anesthesiology [CONS] Routine Consulting Provider: Reason for Anesthesiology: Pre-op Clearance 04/01/17 14:59 Consult to Pharmacy [CONS] Routine Reason for Pharmacy Consult: Dose/Manage Vancomycin Dose/Manage Gentamicin 04/01/17 15:48 Consult to Physician [CONS] Routine Comment: dialysis Consulting Provider: Brent Cadet Person Notified: dr cadet Date Notified: 04/01/17 Time Notified: 18:36 Consult Notification Comment: notified of consult Consult to Physician [CONS] Routine Comment: gangrene toe Consulting Provider: Nahum Phillips 04/01/17 18:26 Consult to Dietitian [CONS] Routine Reason for Dietitian: Dietary Consult 04/03/17 08:20 Consult to Physician [CONS] Routine Comment: positive MRSA blood Consulting Provider: Demi Ames Consulting Provider Notified: Yes When should Consulting Provider be notified: Now Consult to Specialist Group: Infectious Disease When should Consulting Provider be notified: Now Person Notified: Sindy olea Date Notified: 04/03/17 Time Notified: 09:46 04/05/17 11:47 Consult to Occupational Therapy [CONS] Routine Reason for Occupational Therapy: Evaluate and Treat PT [Consult to Physical Therapy] [CONS] Routine Reason for Physical Therapy: Evaluate and Treat 04/09/17 09:11 Consult to Case Mgmt/Social Srvs [CONS] Routine Reason for Case Mgmt/Social Srvs: Discharge Planning Consult Comment: outpt wound care clinic per Dr. Hunter 04/09/17 09:18 Consult to Case Mgmt/Social Srvs [CONS] Routine Reason for Case Mgmt/Social Srvs: Discharge Planning Equipment Consult Comment: wants wheelchair and wheelchair ramp Discharging clinician: Macey Thomas MD Expected date of discharge: 04/09/17
--- NOTE | 2017-04-09 13:34 | Dialysis Note ---
Dialysis Note - Dialysis Note Mr. Rico is seen in hemodialysis. He is tolerating dialysis well and is in no distress. Plans are for discharge. He will continue outpatient dialysis
== END 2017-04-09 15:47 | disposition home health service (06) | DRG 853 ==
LOC: N.ED 12:02 → SUATTDRO 14:20 → N.EDINP 14:20 → N.ICU 15:49 → N.3E 04-02 11:58
PROVIDERS: ADMIT Internal Medicine; ATTEND Internal Medicine

== ENCOUNTER 2017-05-16 09:32 | Inpatient (IN) ==
[2017-05-16] MEDS ORDERED: ALUM/MAG/SIMETH/LIDO VISC 1:1 30 ML BOTTLE PO STA (10:23)
[2017-05-16] MEDS ORDERED: ALUM/MAG/SIMETH/LIDO VISC 1:1 30 ML BOTTLE PO ONE (10:26)
[2017-05-16 10:42] LABS: Basophils % 0.2 % (0.0-0.8); Eosinophils # 0.2 10*3/uL (0.0-0.87); Eosinophils % 4.3 % (0.00-10.9); Immature Granulocytes % 0.4 %; Immature Granulocytes Absolute 0.02 #; Lymphocytes # 2.2 10*3/uL (1.4-4.0); Lymphocytes % 43.3 % (21.2-54.2); Mean Corpuscular HGB Conc 32.4 GM/DL (32-36); Mean Corpuscular Hemoglobin 29 PG (27-34); Mean Corpuscular Volume 90.3 FL (87-102); Monocytes # 0.7 10*3/uL (0.11-0.8); Monocytes % 13.8 % (1.7-12.7); Neutrophils # 1.9 10*3/uL (1.4-7.4); Platelet Count 165 T/CUMM (130-400); Red Blood Count 1.95 MC/CUMM (3.8-5.5); Red Cell Distribution Width 19.6 % (9.3-17.3); White Blood Count 5.1 T/CUMM (4-12)
[2017-05-16 11:06] LABS: Hematocrit 17.6 VOL% (42.0-52.0); Hemoglobin 5.7 GM/DL (14.0-18.0)
--- NOTE | 2017-05-16 11:19 | Emergency Department Note ---
Arrival - Arrival Chief Complaint: Abdominal / Flank Pain Stated Complaint: stomach pain ED Nursing Triage Note: c/o constipation onset 3 days ago Mode of Arrival: Wheelchair Time Seen by Provider: 05/16/17 09:44 - History of Present Illness HPI Narrative: 72-year-old -Al[place]ian male complains of epigastric pain 1 day. Associated with constipation and nausea. Burning in nature. Denies vomiting, fever, chest pain, irregular heartbeat and NSAID usage. Diet consisted of fried foods, spicy foods, tomato-based foods. Last bowel movement reported 3 days ago and was normal. End-stage renal disease patient that dialyzes on Sunday, Sunday, and Sunday. Missed dialysis today because abdominal pain was so severe. PMH: Hypertension, diabetes, hyperlipidemia, ESRD Meds: [place]: Sensipar, Procardia, Renvela, atorvastatin Supervisor Inspection And Testing: Dr. Nathan Allergies/Adverse Reactions: Allergies Allergy/AdvReac Type Severity Reaction Status Date / Time No Known Allergies Allergy Verified 04/01/17 12:24 Home Medications: Home Medications Medication Instructions Recorded Confirmed Type Carvedilol 6.25 mg PO BID 09/28/15 04/20/17 History NIFEdipine [Nifedipine ER] 90 mg PO QAM 09/28/15 04/20/17 History Calcium Acetate 667 mg PO TID W/MEALS 01/06/16 04/20/17 History Cinacalcet HCl [Sensipar] 60 mg PO DAILY 11/08/16 04/20/17 History Sevelamer Carbonate Tab [Renvela 1,600 mg PO TID W/MEALS 11/08/16 04/19/17 History Tab] Atorvastatin Calcium 40 mg PO DAILY 03/29/17 04/20/17 History Diphenoxylate/Atrop 2.5-0.025 2 tablet PO Q6H PRN #20 tablet 03/29/17 04/19/17 Rx [Lomotil Tab] Multivitamin [Multivitamins] 1 each PO DAILY 03/29/17 04/19/17 History Ondansetron [Ondansetron Odt] 4 mg PO Q6H PRN #20 tab.rapdis 03/29/17 04/19/17 Rx Hydrocodone/Acetaminophen 1 each PO Q6H PRN #20 tablet 04/09/17 04/19/17 Rx [Hydrocodon-Acetaminophen 5-325] Amoxicillin/Clav Tab [Augmentin 500 mg PO DIRECTED 04/19/17 04/20/17 History Tab] Review of System - Review of System Constitutional: Present: as per HPI. Absent: fever Respiratory: Present: as per HPI, cough Cardiovascular: Present: as per HPI. Absent: chest pain, palpitations Gastrointestinal: Present: abdominal pain, nausea, constipation. Absent: vomiting, diarrhea Medical,Surgical,& Family Hx - Medical History Cardio: History of: Hypertension Neurology: No history of: Cerebrovascular Accident, Seizures HEENT: History of: Eye Problem (Glasses) Endocrine: History of: Diabetes Mellitus (NIDDM) (3-4 years-OFF MEDS), Dyslipidemia Respiratory: No history of: Respiratory Problems (Flu Vac current [id number]; Current Pneum Vac; exposure to TB took tx) Renal: History of: Dialysis (-W- Dr. Nathan), Renal Failure, Renal Problems Musculoskeletal: History of: Amputation (left big toe; 2nd toe Rt Foot) Hematology: No history of: Anemia Other: History of: Skin Problems (04/20/17 Sched for Debridement Rt 2nd toe), Miscellaneous Medical Problems ([facility]) No history of: Anesthesia Reactions, Cancer - Surgical History Cardiac Surgeries: Sugical HX of: Vascular Access Devices (Lt arm AV Graft) Thoracic Surgeries: Patient denies;: Organ Transplant Neurologic Surgeries: Surgical HX of: Neurologic Surgery (previous head injury, craniotomy in the ) HEENT Surgeries: Surgical HX of: Eye Surgery (Cataract RT/LT) - Family History Family History: Reports;: Family Diabetes, Family Hypertension Denies;: Family Stroke - Social History Smoking Status: Never smoker Frequency of Alcohol Use: None Type of Drug Use: None Exam Physical Examination: - General General appearance: alert, in no apparent distress - Head Head exam: Present: atraumatic, normocephalic, normal inspection - Eye Eye exam: Present: normal appearance, EOMI - ENT ENT exam: Present: normal exam - Neck Neck exam: Present: normal inspection, full ROM. Absent: tenderness, lymphadenopathy - Chest Chest inspection: Present: symmetric chest wall rise - Respiratory Respiratory exam: Present: Bilateral lung bases with fine crackles noted on exam - Cardiovascular Cardiovascular exam: Present: regular rate, normal rhythm, systolic murmur, - Abdominal Exam Abdominal exam: Present: soft, normal bowel sounds, LLQ tenderness, RLQ tenderness, RUQ tenderness - Extremities Exam Extremities exam: Present: normal inspection, full ROM, normal capillary, left forearm fistula with positive thrill, positive bruit - Back Exam Back exam: Present: normal inspection. Absent: CVA tenderness (R), CVA tenderness (L) - Neurological Exam Neurological exam: Present: alert, oriented X3, CN II-XII intact, - Psychiatric Psychiatric exam: Present: normal affect, normal mood - Skin Skin exam: Present: warm, dry, intact Vital Signs: Vital Signs Temperature 98.4 F 05/16/17 09:35 Pulse Rate 76 05/16/17 11:25 Respiratory Rate 20 05/16/17 11:25 Blood Pressure 159/75 05/16/17 11:25 O2 Sat by Pulse Oximetry 96 05/16/17 11:25 Course - Reevaluation(s) Reevaluation #1: Patient epigastric pain has completely resolved after receiving GI cocktail. Time: 11:20 Reevaluation #2: H&H 5.7 17.6. Chest x-ray suggestive of congestive heart failure and bilateral pleural effusions. Abdominal x-ray shows small densities in the right mid abdomen may reflect nephrolithiasis. Will consult hospitalist for admission. - Consultations Consultation #1: ALISA Navarro, hospitalist notified of patient's labs and radiology report. Time: 11:30 Results - Labs CBC & BMP: 05/16/17 10:31 05/16/17 10:31 Labs: Laboratory Tests 05/16/17 05/16/17 05/16/17 10:31 10:31 10:31 AST 31 ALT 10 L Albumin 2.8 L Globulin 4.5 H Albumin/Globulin Ratio 0.6 L Amylase 61 Lipase 129.0 Disposition Clinical Impression: Anemia, End stage renal disease, Abnormal findings on radiological examination of gastrointestinal tract, Abnormal chest x-ray Case discussed with: patient, patient's family Disposition: Still a Patient Condition: Stable
[2017-05-16 11:20] LABS: Alanine Aminotransferase 10 U/L (16-61); Albumin 2.8 G/DL (3.4-5.0); Alkaline Phosphatase 81 U/L (45-117); Aspartate Amino Transferase 31 U/L (0-37); Bilirubin,Total < 0.39 MG/DL (0.2-1.0); Blood Urea Nitrogen 30 MG/DL (7-18); Calcium 8.5 MG/DL (8.5-10.1); Glucose 109 MG/DL (74-106); Osmolality,Calculated 264.9 MOS/KG (273-304); Potassium 3.4 MMOL/L (3.5-5.1); Sodium 129 MMOL/L (136-145); Total Protein 7.3 G/DL (6.4-8.3)
[2017-05-16 11:33] LABS: Eosinophils 3 % (0-10); Hypochromasia 2+; Lymphocytes 45 % (20-55); Microcytosis 2+; Polychromasia Slight; Segmented Neutrophils 39 % (50-85); Total Cells Counted 100
[2017-05-16 11:34] LABS: Platelet Estimate Adequate
--- NOTE | 2017-05-16 11:36 | XRay Report ---
XR abdomen 2V Indication: Abdominal pain. Comparison: None. Technique: Flat and erect images of the abdomen were performed. Findings: Blunting the costophrenic angles is demonstrated bilaterally. Interstitial stranding in the lung bases is nonspecific in appearance and may in part reflect scarring. No organomegaly is suggested. The bowel gas pattern demonstrates no significant abnormality. Bones and soft tissues demonstrate no acute findings. Faint density within the mid left abdomen may reflect left-sided nephrolith. Additional small densities right mid abdomen may reflect right-sided nephroliths. Arterial calcification involving aorta and iliac arteries is demonstrated. Impression: 1. Bilateral nephrolithiasis is not excluded. Other considerations could include renal vascular calcification. 2. No specific abnormality of the bowel gas pattern is demonstrated. 05/16/2017 11:32 AM PROCEDURE INTERPRETED AT [facility] DEPARTMENT OF RADIOLOGY Final Report Signed by: Dr. Juan Anderson
--- NOTE | 2017-05-16 11:36 | XRay Report ---
XR chest 2V Indication: Abnormal lung sounds. Cough. Comparison: Chest x-ray 04/01/2017 Technique: PA and lateral chest x-ray was performed. Findings: Mild cardiomegaly appears stable. Atherosclerotic changes of the aorta are stable. Interval increase in bilateral blunting of costophrenic angle and interval increase in bilateral mid and lower lung interstitial stranding is noted. Upper lungs are clear. Bones and soft tissues demonstrate no significant abnormalities. Impression: 1. Appearance of the chest is most suggestive of congestive heart failure with evidence of interstitial edema and bilateral pleural effusions. 05/16/2017 11:33 AM PROCEDURE INTERPRETED AT [facility] DEPARTMENT OF RADIOLOGY Final Report Signed by: Dr. Juan Anderson
[2017-05-16] MEDS ORDERED: SODIUM CHLORIDE 0.9% 250 ML IV PRN (12:15)
--- NOTE | 2017-05-16 12:21 | Hospitalist History & Physical ---
Assessment and Plan (1) CKD (chronic kidney disease) Status: Acute Assessment and plan: The patient normally undergoes hemodialysis on Sunday and Sunday. I have consulted nephrology and spoke with Dr. Tapia personally, the patient will undergo hemodialysis this afternoon and received blood products during the transfusion. Current Visit: No Qualifiers: Chronic kidney disease stage: on chronic dialysis Qualified Code(s): N18.6 - End stage renal disease; Z99.2 - Dependence on renal dialysis (2) Anemia Problem details: transfuse on HD tomorrow. Status: Chronic Assessment and plan: Hemoglobin and hematocrit was noted at 5.7/17.6. He reports that he is received multiple transfusions in the past. The patient is in agreement to receive blood products. The patient's anemia is chronic in nature. We will type and screen in order 3 units of PRBCs to be transfused during hemodialysis. Current Visit: No (3) Essential (primary) hypertension Status: Chronic Assessment and plan: Blood pressures are stable at the time of encounter, home medications have been reviewed and reconciled. We will monitor blood pressures closely during the clinical encounter. Current Visit: No (4) Epigastric abdominal pain Status: Acute Assessment and plan: The patient reported epigastric pain with an onset 3 days prior to presentation. Upon review of the patient's medical records, the patient was noted to have experienced gastrointestinal issues in the past. During a previous encounter the patient was subsequently diagnosed with erosive esophagitis. I reviewed the patient's home medications and the patient was not noted to be currently receiving a protein pump inhibitor. We will start protein pump inhibitor, Protonix 40 mg daily. In addition, the patient was given a GI cocktail in the fast track Center and the patient's symptoms quickly resolved. We will monitor closely Current Visit: Yes History of Present Illness Chief complaint: Abdominal pain/epigastric pain History of present illness: This is a chronically ill 72-year-old male that presented to the Non-urgent/Fast -Track Center at [facility] this morning for the evaluation of abdominal and flank pain. The patient has a complex medical history significant for hypertension, closed head injury, atl-eblgzah-twzwtkfjd diabetes mellitus, dyslipidemia, end-stage renal disease, anemia, and diabetic foot ulcerations. Patient has a surgical history significant for creation of an AV vascular access to the left arm, bilateral cataract removal, craniotomy, multiple toe amputations. The patient reported the onset of symptoms 3 days prior to presentation. He describes the pain as "burning" and reports the pain near the epigastric area. He reported the onset of symptoms shortly after eating a meal. In addition, the patient reports that he has "issues" with his bowel pattern. He reported his last bowel movement 3 days prior to presentation. 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 The patient was scheduled for hemodialysis this morning however his abdominal pain became persistent prompting him to report to the Non-Urgent Fast-Track Center for further evaluation. The patient was assessed at the time of presentation. Labs were obtained; complete blood count reported white blood cell count of 5.1, hemoglobin 5.7, hematocrit 17.6, and platelet count 165. Chemistry panel reported sodium at 129 , potassium 3.4, chloride 86, carbon dioxide 34, BUN 30, creatinine 6.60, glucose 109, calcium 8.5, total bilirubin less than 0.39, AST 31, ALT 13, alkaline phosphatase 81, total protein 7.3, albumin 2.8, and lipase 129. Abdominal x-ray reported bilateral nephrolithiasis is not excluded and other considerations could include renal vascular calcification and no specific abnormality of the bowel gas pattern was demonstrated. Chest x-ray reported that the appearance of the chest is most suggestive of congestive heart failure with evidence of interstitial edema and bilateral pleural effusions. The patient was given a "GI cocktail" in the Fast Track Center and the patient's symptoms resolved at the time of assessment. After brief discussion with both JACLYN Peters and Dr. Hess, the patient will be admitted to the hospitalist service for continuation of care. Due to the complexity of the patient's current renal status, I have contacted Dr. Jovani Tapia. Dr. Tapia has been briefed on the patient's current status and laboratory abnormalities. The patient will undergo hemodialysis during which he will receive blood products. All medications have been reviewed and reconciled. CODE STATUS discussed; patient is a FULL CODE. Home Medications Medication Instructions Recorded Confirmed Type Carvedilol 6.25 mg PO BID 09/28/15 04/20/17 History NIFEdipine [Nifedipine ER] 90 mg PO QAM 09/28/15 04/20/17 History Calcium Acetate 667 mg PO TID W/MEALS 01/06/16 04/20/17 History Cinacalcet HCl [Sensipar] 60 mg PO DAILY 11/08/16 04/20/17 History Sevelamer Carbonate Tab [Renvela 1,600 mg PO TID W/MEALS 11/08/16 04/19/17 History Tab] Atorvastatin Calcium 40 mg PO DAILY 03/29/17 04/20/17 History Diphenoxylate/Atrop 2.5-0.025 2 tablet PO Q6H PRN #20 tablet 03/29/17 04/19/17 Rx [Lomotil Tab] Multivitamin [Multivitamins] 1 each PO DAILY 03/29/17 04/19/17 History Ondansetron [Ondansetron Odt] 4 mg PO Q6H PRN #20 tab.rapdis 03/29/17 04/19/17 Rx Hydrocodone/Acetaminophen 1 each PO Q6H PRN #20 tablet 04/09/17 04/19/17 Rx [Hydrocodon-Acetaminophen 5-325] Amoxicillin/Clav Tab [Augmentin 500 mg PO DIRECTED 04/19/17 04/20/17 History Tab] Allergies Allergy/AdvReac Type Severity Reaction Status Date / Time No Known Allergies Allergy Verified 04/01/17 12:24 Medical,Surgical,& Family Hx - Medical History Cardio: History of: Hypertension Neurology: No history of: Cerebrovascular Accident, Seizures HEENT: History of: Eye Problem (Glasses) Endocrine: History of: Diabetes Mellitus (NIDDM) (3-4 years-OFF MEDS), Dyslipidemia Respiratory: No history of: Respiratory Problems (Flu Vac current [id number]; Current Pneum Vac; exposure to TB took tx) Renal: History of: Dialysis (M-W- Dr. Nathan), Renal Failure, Renal Problems Musculoskeletal: History of: Amputation (left big toe; 2nd toe Rt Foot) Hematology: No history of: Anemia Other: History of: Skin Problems (04/20/17 Sched for Debridement Rt 2nd toe), Miscellaneous Medical Problems ([facility]) No history of: Anesthesia Reactions, Cancer - Surgical History Cardiac Surgeries: Sugical HX of: Vascular Access Devices (Lt arm AV Graft) Thoracic Surgeries: Patient denies;: Organ Transplant Neurologic Surgeries: Surgical HX of: Neurologic Surgery (previous head injury, craniotomy in the ) HEENT Surgeries: Surgical HX of: Eye Surgery (Cataract RT/LT) - Family History Family History: Reports;: Family Diabetes, Family Hypertension Denies;: Family Stroke - Social History Smoking Status: Never smoker Frequency of Alcohol Use: None Type of Drug Use: None 12 point system: reviewed and no additional remarkable complaints except as stated Exam - Constitutional Vitals: Period Temp Pulse Resp BP Sys/Avalos Pulse Ox Last 24 Hr 98.4 F 70-76 18-20 118-159/52-75 94-96 General appearance: normal weight, no acute distress - Head Head exam: Present: normal inspection, normocephalic - Eye Eye exam: Present: EOMI, conjunctival injection Pupils: Present: TIN, normal accommodation - ENT ENT exam: Present: normal exam, normal external ear exam - Neck Neck exam: Present: normal inspection. Absent: lymphadenopathy, meningismus, thyromegaly - Respiratory Respiratory exam: Present: other (Fine crackles noted to bilateral) - Cardiovascular Cardiovascular exam: Present: regular rate and rhythm. Absent: carotid bruit, diastolic murmur, gallop, JVD, rubs, systolic murmur - GI/Abdominal GI/Abdominal exam: Present: normal bowel sounds, soft - Extremities Exam Extremities exam: Present: normal inspection, normal capillary refill, full ROM. Absent: edema - Back Exam Back exam: Present: normal inspection - Neurological Exam Neurological exam: Present: alert, oriented X3, CN II-XII intact - Psychiatric Psychiatric exam: Present: normal affect, normal mood - Skin Skin exam: Present: normal color, warm, dry Results - Labs CBC & BMP: 05/16/17 10:31 05/16/17 10:31 Lab Results: I have reviewed the past 24 hour labs
--- NOTE | 2017-05-16 16:04 | Nephrology Consult Note ---
History of Present Illness Chief complaint: End-stage renal disease History of present illness: Mr. Rico is a 72 year old male with a history of end-stage renal disease due to hypertension and diabetes who currently dialyzes at the [facility] dialysis unit on a Sunday schedule. The patient presented with a history of abdominal pain and cramping associated with that with eating. Symptoms became more severe today and patient was evaluated in the emergency department where he was found to have evidence of a hemoglobin of 5.7. He had denies any dark stools or bright red blood per rectum. He has been admitted for blood transfusion as well as further workup. Nephrology has been consulted for renal issues. The gentleman denies shortness of breath or chest pain at this time. He will get 2 units packed red blood cells on dialysis today. Home Medications Medication Instructions Recorded Confirmed Type Carvedilol 6.25 mg PO BID 09/28/15 04/20/17 History NIFEdipine [Nifedipine ER] 90 mg PO QAM 09/28/15 04/20/17 History Calcium Acetate 667 mg PO TID W/MEALS 01/06/16 04/20/17 History Cinacalcet HCl [Sensipar] 60 mg PO DAILY 11/08/16 04/20/17 History Sevelamer Carbonate Tab [Renvela 1,600 mg PO TID W/MEALS 11/08/16 04/19/17 History Tab] Atorvastatin Calcium 40 mg PO DAILY 03/29/17 04/20/17 History Diphenoxylate/Atrop 2.5-0.025 2 tablet PO Q6H PRN #20 tablet 03/29/17 04/19/17 Rx [Lomotil Tab] Multivitamin [Multivitamins] 1 each PO DAILY 03/29/17 04/19/17 History Ondansetron [Ondansetron Odt] 4 mg PO Q6H PRN #20 tab.rapdis 03/29/17 04/19/17 Rx Hydrocodone/Acetaminophen 1 each PO Q6H PRN #20 tablet 04/09/17 04/19/17 Rx [Hydrocodon-Acetaminophen 5-325] Amoxicillin/Clav Tab [Augmentin 500 mg PO DIRECTED 04/19/17 04/20/17 History Tab] Allergies Allergy/AdvReac Type Severity Reaction Status Date / Time No Known Allergies Allergy Verified 04/01/17 12:24 Medical,Surgical,& Family Hx - Medical History Cardio: History of: Hypertension Neurology: No history of: Cerebrovascular Accident, Seizures HEENT: History of: Eye Problem (Glasses) Endocrine: History of: Diabetes Mellitus (NIDDM) (3-4 years-OFF MEDS), Dyslipidemia Respiratory: No history of: Respiratory Problems (Flu Vac current [id number]; Current Pneum Vac; exposure to TB took tx) Renal: History of: Dialysis (-W- Dr. Nathan), Renal Failure, Renal Problems Musculoskeletal: History of: Amputation (left big toe; 2nd toe Rt Foot) Hematology: No history of: Anemia Other: History of: Skin Problems (04/20/17 Sched for Debridement Rt 2nd toe), Miscellaneous Medical Problems ([facility]) No history of: Anesthesia Reactions, Cancer - Surgical History Cardiac Surgeries: Sugical HX of: Vascular Access Devices (Lt arm AV Graft) Thoracic Surgeries: Patient denies;: Organ Transplant Neurologic Surgeries: Surgical HX of: Neurologic Surgery (previous head injury, craniotomy in the ) HEENT Surgeries: Surgical HX of: Eye Surgery (Cataract RT/LT) - Family History Family History: Reports;: Family Diabetes, Family Hypertension Denies;: Family Stroke - Social History Smoking Status: Never smoker Frequency of Alcohol Use: None Type of Drug Use: None Review of Systems Constitutional: fatigue Gastrointestinal: abdominal pain Exam - Vital Signs Vital signs: Period Temp Pulse Resp BP Sys/Avalos Pulse Ox Last 24 Hr 98.4 F 70-76 18-20 118-159/52-75 94-96 - General Appearance General appearance: well-developed, well-nourished EENT: ATNC Neck: supple Respiratory: clear Cardiology: no edema, regular rate, regular rhythm Gastrointestinal: normoactive bowel sounds, no tenderness Neurologic: alert and oriented x3 Musculoskeletal: no clubbing Psychiatric: mood/affect appropriate Results - Labs CBC & BMP: 05/16/17 10:31 05/16/17 10:31 Assessment and Plan (1) TIA (transient ischemic attack) Status: Acute Current Visit: No (2) Essential (primary) hypertension Status: Chronic Current Visit: No (3) Dyslipidemia Status: Acute Current Visit: No (4) Hypoglycemia Status: Acute Current Visit: No (5) End stage renal disease Status: Chronic Assessment and plan: Hemodialysis today. Current Visit: Yes (6) Epigastric abdominal pain Status: Acute Current Visit: Yes (7) Anemia Status: Acute Assessment and plan: Patient will get 2 units packed red blood cells today on dialysis Current Visit: Yes Qualifiers: Chronic kidney disease stage: on chronic dialysis
--- NOTE | 2017-05-16 16:11 | Dialysis Note ---
Dialysis Note - Dialysis Note Patient seen on dialysis is tolerating the procedure. Plan to give 2 units packed red blood cells on dialysis today. Blood pressure 159/75. Cardiovascular regular rate lungs are clear abdomen is soft.
[2017-05-16] MEDS: CARVEDILOL 6.25 MG TABLET PO SCH (21:09)
[2017-05-17] MEDS: CALCIUM ACETATE 667 MG CAPSULE PO SCH ×6 (04:08→21:29)
[2017-05-17] MEDS: SEVELAMER CARBONATE 800 MG TABLET PO SCH ×6 (04:08→21:31)
[2017-05-17 05:18] LABS: Basophils % 0.6 % (0.0-0.8); Eosinophils # 0.2 10*3/uL (0.0-0.87); Eosinophils % 4.5 % (0.00-10.9); Hemoglobin 9.4 GM/DL (14.0-18.0); Immature Granulocytes % 0.4 %; Immature Granulocytes Absolute 0.02 #; Lymphocytes # 1.4 10*3/uL (1.4-4.0); Lymphocytes % 25.6 % (21.2-54.2); Mean Corpuscular HGB Conc 33.6 GM/DL (32-36); Mean Corpuscular Hemoglobin 29 PG (27-34); Mean Platelet Volume 9.9 FL (9.6-12.0); Monocytes # 0.6 10*3/uL (0.11-0.8); Monocytes % 11.7 % (1.7-12.7); Neutrophils # 3.1 10*3/uL (1.4-7.4); Neutrophils % 57.2 % (38.7-73.9); Platelet Count 174 T/CUMM (130-400); Red Blood Count 3.22 MC/CUMM (3.8-5.5); Red Cell Distribution Width 17.5 % (9.3-17.3); White Blood Count 5.3 T/CUMM (4-12)
[2017-05-17 05:55] LABS: Albumin 2.6 G/DL (3.4-5.0); Bilirubin,Total 0.7 MG/DL (0.2-1.0); Calcium 8.4 MG/DL (8.5-10.1); Magnesium 2.1 MG/DL (1.8-2.4); Osmolality,Calculated 264.4 MOS/KG (273-304); Phosphorous 2.5 MG/DL (2.5-4.9); Potassium 3.7 MMOL/L (3.5-5.1)
--- NOTE | 2017-05-17 07:42 | XRay Report ---
Exam: XR chest 1V portable Date: 05/17/2017 4:00 AM Indication: COPD Comparison: None Technical: 05/16/2017 Findings: Cardiomegaly is present with interstitial infiltrates in both bases and atelectasis with cardiomegaly and low volume effusions. ASVD is present. External cardiac leads are present. No pneumothorax. ASVD is present. Impression: 1. Worsening radiographic findings with some increasing effusions in both bases with underlying cardiac enlargement suggest possibly a component of superimposed COPD with underlying scarring and atelectatic change or infiltrates in both bases as well. PROCEDURE INTERPRETED AT [facility] DEPARTMENT OF RADIOLOGY Final Report Signed by: Dr. Sukumar Bains
--- NOTE | 2017-05-17 11:24 | Hospitalist Progress Note ---
Assessment and Plan (1) Hypokalemia Status: Acute Assessment and plan: This is resolved. Patient did receive more potassium through dialysis yesterday. Current Visit: Yes (2) Hyponatremia Status: Acute Assessment and plan: Significantly improved with a sodium of 133 today. With improved oral intake I suspect this to even be better. No need to repeat it tomorrow. Current Visit: Yes (3) Chronic renal failure, stage 5 Status: Acute Current Visit: No (4) Anemia Problem details: transfuse on HD tomorrow. Status: Chronic Assessment and plan: Patient does have chronic anemia of chronic disease given his renal failure however I suspect there must have been a secondary contributor to his H&H of 5.7 and 17.6 that he came in with yesterday. For this reason we are going to check stool Hemoccult. MCV was normal there is elevation of the RDW which could be result of chronic bleeding. May need to check ferritin on the serum in the lab. Current Visit: No Hospitalist: Subjective Interval history: Patient has been seen interviewed and examined and chart has been reviewed. Admitted yesterday with complaints of abdominal pain no active bleeding but was found to be quite anemic with hematocrit 17.6%. Patient has end-stage renal disease on dialysis. He was also noted to be hyponatremic, hypokalemic and hypochloremic. Because he was due for dialysis 3 units of packed cells were typed and crossmatched and transfused during dialysis. We use the dialysis bath to replenish sodium and potassium. Repeat chemistries today sodium 133 with potassium of 3.7 chloride of 97. Her H&H is 9.4 and 28. Patient is asymptomatic. Will need to repeat H&H in the morning to verify stability and I am going to Hemoccult his stools. This is discussed with the patient. Targeted date of discharge is tomorrow morning Exam - Constitutional Vitals: Period Temp Pulse Resp BP Sys/Avalos Pulse Ox Last 24 Hr 97.5 F-98.5 F 72-76 18-22 135-159/63-75 89-100 General appearance: normal weight, no acute distress - Head Head exam: Present: normal inspection, normocephalic, atraumatic, other (Has a history of skull injury in the right frontal area this is all healed from the past) - Eye Eye exam: Present: EOMI Pupils: Present: TIN - ENT ENT exam: Present: normal oropharynx - Respiratory Respiratory exam: Present: clear to auscultation bilaterally - Cardiovascular Cardiovascular exam: Present: regular rate and rhythm - GI/Abdominal GI/Abdominal exam: Present: normal bowel sounds, soft - Extremities Exam Extremities exam: Present: full ROM - Neurological Exam Neurological exam: Present: alert, oriented X3, CN II-XII intact - Psychiatric Psychiatric exam: Present: normal affect, normal mood - Skin Skin exam: Present: normal color, warm, dry Results - Labs CBC & BMP: 05/17/17 04:51 05/17/17 04:51 Lab Results: I have reviewed the past 24 hour labs
[2017-05-17] MEDS: BACITRACIN OINT 0.9 GM PACK TOP SCH (12:00)
[2017-05-17] MEDS: CINACALCET 30 MG TABLET PO SCH (12:31)
[2017-05-17] MEDS: MULTIVITAMIN (CENTRUM) TABLET PO SCH (12:31)
[2017-05-17] MEDS: CARVEDILOL 6.25 MG TABLET PO SCH ×2 (12:32→20:51)
[2017-05-17] MEDS: PANTOPRAZOLE 20 MG TABLET PO SCH (12:33)
[2017-05-17] MEDS: ATORVASTATIN 40 MG TABLET PO SCH (12:47)
--- NOTE | 2017-05-17 19:05 | Nephrology Progress Note ---
Nephrology - PN: Subj Interval history: The patient is resting comfortably. Hematocrit is improved. No other acute changes. He is resting comfortably he denies any complaints. Exam (PN)-Nephrology - Vital Signs Vital signs: Period Temp Pulse Resp BP Sys/Avalos Pulse Ox Last 24 Hr 97.3 F-98.5 F 63-75 18-30 118-158/56-77 84-100 - General Appearance General appearance: well-developed, well-nourished EENT: ATNC Neck: supple Respiratory: clear Cardiology: regular rate, regular rhythm Gastrointestinal: normoactive bowel sounds, no tenderness Neurologic: alert and oriented x3 - Lab 05/17/17 04:51 05/17/17 04:51 Most recent lab results Calcium 8.4 MG/DL (8.5-10.1) L 05/17/17 04:51 Phosphorus 2.5 MG/DL (2.5-4.9) 05/17/17 04:51 Magnesium 2.1 MG/DL (1.8-2.4) 05/17/17 04:51 Assessment and Plan (1) TIA (transient ischemic attack) Status: Acute Current Visit: No (2) Essential (primary) hypertension Status: Chronic Current Visit: No (3) Dyslipidemia Status: Acute Current Visit: No (4) Hypoglycemia Status: Acute Current Visit: No (5) End stage renal disease Status: Chronic Assessment and plan: Hemodialysis tomorrow Current Visit: Yes (6) Epigastric abdominal pain Status: Acute Current Visit: Yes (7) Anemia Status: Acute Assessment and plan: Hematocrit is stable Current Visit: Yes Qualifiers: Chronic kidney disease stage: on chronic dialysis
[2017-05-18 05:09] LABS: Hematocrit 24.7 VOL% (42.0-52.0); Hemoglobin 8.4 GM/DL (14.0-18.0)
[2017-05-18 08:08] VITALS: BP 122/58
[2017-05-18] MEDS: CINACALCET 30 MG TABLET PO SCH (08:11)
[2017-05-18] MEDS: ATORVASTATIN 40 MG TABLET PO SCH (08:11)
[2017-05-18] MEDS: SEVELAMER CARBONATE 800 MG TABLET PO SCH ×2 (08:11→13:11)
[2017-05-18] MEDS: CALCIUM ACETATE 667 MG CAPSULE PO SCH ×2 (08:12→13:11)
[2017-05-18] MEDS: PANTOPRAZOLE 20 MG TABLET PO SCH (08:12)
[2017-05-18] MEDS: MULTIVITAMIN (CENTRUM) TABLET PO SCH (08:12)
[2017-05-18] MEDS: CARVEDILOL 6.25 MG TABLET PO SCH (08:12)
--- NOTE | 2017-05-18 08:43 | Dialysis Note ---
Dialysis Note - Dialysis Note Mr. Rico is seen during his hemodialysis. He is using his left forearm access and is working well. No changes are made. We will continue to support with dialysis as an outpatient if discharged.
--- NOTE | 2017-05-18 10:12 | Discharge Summary ---
<Fausto Hess - Last Filed: 05/18/17 10:10> Hospital Course - Hospital Course Hospital Course: This is a chronically ill 72-year-old male that presented to the [facility]-urg[facility] at [facility] the afternoon of May 16, 2017 for the evaluation of abdominal and flank pain. The patient has a complex medical history significant for hypertension, closed head injury, non-insulin- dependent diabetes mellitus, dyslipidemia, end-stage renal disease, anemia, and diabetic foot ulcerations. Patient has a surgical history significant for creation of an AV vascular access to the left arm, bilateral cataract removal, craniotomy, multiple toe amputations. The patient reported the onset of symptoms 3 days prior to presentation. He described the pain as "burning" and reports the pain near the epigastric area. He reported the onset of symptoms shortly after eating a meal. In addition, the patient reported that he has "issues" with his bowel pattern. He reported his last bowel movement 3 days prior to presentation. 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 The patient was scheduled for hemodialysis this morning however his abdominal pain became persistent prompting him to report to the Non-Urgent [facility] for further evaluation. The patient was assessed at the time of presentation. Labs were obtained; complete blood count reported white blood cell count of 5.1, hemoglobin 5.7, hematocrit 17.6, and platelet count 165. Chemistry panel reported sodium at 129 , potassium 3.4, chloride 86, carbon dioxide 34, BUN 30, creatinine 6.60, glucose 109, calcium 8.5, total bilirubin less than 0.39, AST 31, ALT 13, alkaline phosphatase 81, total protein 7.3, albumin 2.8, and lipase 129. Abdominal x-ray reported bilateral nephrolithiasis is not excluded and other considerations could include renal vascular calcification and no specific abnormality of the bowel gas pattern was demonstrated. Chest x-ray reported that the appearance of the chest is most suggestive of congestive heart failure with evidence of interstitial edema and bilateral pleural effusions. The patient was given a "GI cocktail" in the [facility] and the patient's symptoms resolved at the time of assessment. The patient was subsequently admitted to the hospitalist service for continuation of care. A nephrology consultation was requested to evaluate and assist during the clinical encounter. The patient underwent hemodialysis on the day of admission and received blood products during his treatment. The patient's condition gradually improved. The patient's condition is stable. Patient hemoglobin and hematocrit is noted at 8.4/24.7. The patient has not experienced any significant overnight events. The patient's vital signs are stable. Today, we feel that the patient is indeed appropriate for discharge to follow-up with his primary care physician and continue his hemodialysis treatments as indicated. Diagnosis - Discharge Diagnosis (1) Hypokalemia Status: Acute (2) Hyponatremia Status: Acute (3) Chronic renal failure, stage 5 Status: Acute (4) Anemia Status: Chronic Discharge Plan - Discharge Data Disposition: Disch To Home/Self Care Condition at Discharge: Stable Discharge Diet: heart healthy Activity: increase activity as tolerated Hygiene: no restrictions Weight Bearing at Discharge: weight bear as tolerated Driving: not until seen by doctor Contact your physician if you experience:: fever over 101, Nausea/Vomiting, Shortness of breath, pain uncontrolled by pain medications - Discharge Medications Continue Carvedilol 6.25 mg PO BID NIFEdipine [Nifedipine ER] 90 mg PO QAM Calcium Acetate 667 mg PO TID W/MEALS Hydrocodone/Acetaminophen [Hydrocodon-Acetaminophen 5-325] 1 each PO Q6H PRN #20 tablet PRN Reason: Pain Moderate To Severe (4-10) Sevelamer Carbonate Tab [Renvela Tab] 1,600 mg PO TID W/MEALS Cinacalcet HCl [Sensipar] 60 mg PO DAILY Diphenoxylate/Atrop 2.5-0.025 [Lomotil Tab] 2 tablet PO Q6H PRN #20 tablet PRN Reason: Diarrhea Ondansetron [Ondansetron Odt] 4 mg PO Q6H PRN #20 tab.rapdis PRN Reason: Nausea Atorvastatin Calcium 40 mg PO DAILY Multivitamin [Multivitamins] 1 each PO DAILY Discontinued Amoxicillin/Clav Tab [Augmentin Tab] 500 mg PO DIRECTED - Follow Up or Referral - Forms/Instructions Exam - Constitutional Vitals: Period Temp Pulse Resp BP Sys/Avalos Pulse Ox Last 24 Hr 97.1 F-98.3 F 58-72 19-30 110-150/56-77 84-100 - Head Head exam: Present: normal inspection, normocephalic - Eye Eye exam: Present: EOMI Pupils: Present: TIN - ENT ENT exam: Present: normal oropharynx - Respiratory Respiratory exam: Present: clear to auscultation bilaterally - Cardiovascular Cardiovascular exam: Present: regular rate and rhythm - GI/Abdominal GI/Abdominal exam: Present: normal bowel sounds, soft - Extremities Exam Extremities exam: Present: full ROM - Neurological Exam Neurological exam: Present: alert, oriented X3, CN II-XII intact - Psychiatric Psychiatric exam: Present: normal affect - Skin Skin exam: Present: normal color, warm, dry Discharge Results Procedures and tests throughout hospitalization: Pending Orders 05/17/17 07:55 Occult Blood, Stool Routine Labs on day of discharge: Labs from last 24 hours 05/18/17 05/18/17 05/17/17 07:47 04:20 19:11 Hgb 8.4 L Hct 24.7 L POC Glucose 126 H 146 H Ferritin Blood Type Antibody Screen Crossmatch 05/17/17 05/17/17 05/17/17 15:50 11:24 04:46 Hgb Hct POC Glucose 95 133 H Ferritin 6526.0 H Blood Type Antibody Screen Crossmatch 05/16/17 10:31 Hgb Hct POC Glucose Ferritin Blood Type O POSITIVE Antibody Screen Negative Crossmatch See Detail DS: Provider Date of admission: 05/16/17 12:11 Primary care physician: Jovani Tapia Jr., MD Attending physician on admission: Ramon Alanis CNP Consults: 05/16/17 12:19 Consult to Physician [CONS] Routine Comment: Consulting Provider: Jovani Tapia Jr. When should Consulting Provider be notified: Now Discharging clinician: Fausto eHss MD <Ramon Alanis - Last Filed: 05/18/17 10:21> Diagnosis - Discharge Diagnosis (1) CKD (chronic kidney disease) Status: Acute (2) Anemia Status: Chronic (3) Essential (primary) hypertension Status: Chronic (4) Epigastric abdominal pain Status: Acute
[2017-05-18] MEDS: BACITRACIN OINT 0.9 GM PACK TOP SCH (13:11)
== END 2017-05-18 14:08 | disposition home or self-care (01) | DRG 682 ==
LOC: N.ED 09:32 → SUATTDRO 12:11 → N.EDINP 12:11 → N.2E 13:29
PROVIDERS: ADMIT Nurse Practitioner; ATTEND Internal Medicine Infectious Disease

== ENCOUNTER 2017-08-17 13:34 | Observation (INO) ==
[2017-08-17] MEDS ORDERED: ACETAMINOPHEN 325 MG TABLET PO PRN (16:40)
[2017-08-17] MEDS ORDERED: ONDANSETRON 4 MG/2 ML VIAL IV PRN (16:40)
[2017-08-17] MEDS ORDERED: DEXTROSE 50% 25 GM/50 ML VIAL IV PRN (16:40)
[2017-08-17] MEDS ORDERED: GLUCAGON 1 MG VIAL IM PRN (16:40)
[2017-08-17] MEDS: INSULIN REGULAR 100 UNIT/ML SUBCUT SCH ×2 (18:10→22:52)
[2017-08-17] MEDS: CARVEDILOL 6.25 MG TABLET PO SCH (22:08)
[2017-08-18 03:21] LABS: Basophils % 0.6 % (0.0-0.8); Eosinophils # 0.3 10*3/uL (0.0-0.87); Eosinophils % 5.3 % (0.00-10.9); Hemoglobin 9.3 GM/DL (14.0-18.0); Immature Granulocytes % 0.2 %; Immature Granulocytes Absolute 0.01 #; Lymphocytes % 54.5 % (21.2-54.2); Mean Corpuscular HGB Conc 33.2 GM/DL (32-36); Mean Corpuscular Hemoglobin 31 PG (27-34); Mean Corpuscular Volume 92.4 FL (87-102); Mean Platelet Volume 9.8 FL (9.6-12.0); Monocytes # 0.5 10*3/uL (0.11-0.8); Monocytes % 9.4 % (1.7-12.7); Neutrophils # 1.6 10*3/uL (1.4-7.4); Platelet Count 176 T/CUMM (130-400); Red Blood Count 3.03 MC/CUMM (3.8-5.5); Red Cell Distribution Width 17.2 % (9.3-17.3); White Blood Count 5.5 T/CUMM (4-12)
[2017-08-18 03:58] LABS: Calcium 9.2 MG/DL (8.5-10.1); Potassium 4.3 MMOL/L (3.5-5.1)
[2017-08-18 05:47] LABS: Band Neutrophils 1 % (0-10); Eosinophils 3 % (0-10); Lymphocytes 58 % (20-55); Nucleated Red Blood Cells 1 (0-5); Platelet Estimate Normal; Segmented Neutrophils 34 % (50-85); Total Cells Counted 100
[2017-08-18] MEDS ORDERED: CLINDAMYCIN INJ 900 MG in PREMIX 1 EACH IV ONE (07:00)
[2017-08-18] MEDS: CARVEDILOL 6.25 MG TABLET PO SCH (07:40)
[2017-08-18] MEDS: INSULIN REGULAR 100 UNIT/ML SUBCUT SCH ×2 (08:08→12:32)
[2017-08-18] MEDS ORDERED: PANTOPRAZOLE 40 MG TABLET PO SCH (09:00)
[2017-08-18 13:03] VITALS: BP 139/70
== END 2017-08-18 13:35 | disposition home or self-care (01) ==
LOC: N.3E
PROVIDERS: ADMIT Surgery; ATTEND Surgery

== ENCOUNTER 2017-11-30 09:35 | Inpatient (IN) ==
[2017-11-30] MEDS ORDERED: ASPIRIN 325 MG TABLET PO STA (10:46)
[2017-11-30] MEDS ORDERED: ASPIRIN 325 MG TABLET ONE (12:33)
[2017-11-30 12:36] LABS: INR 1.6; PT Patient Result 16.2 SECS; Partial Thromboplastin Time 22.2 SECS (0-40)
[2017-11-30] MEDS ORDERED: NITROGLYCERIN SL 0.4 MG TABLET SL ONE (12:55)
[2017-11-30] MEDS ORDERED: ALUM/MAG/SIMETH/LIDO VISC 1:1 30 ML BOTTLE PO ONE (12:57)
[2017-11-30] MEDS ORDERED: ALUM/MAG/SIMETH/LIDO VISC 1:1 30 ML BOTTLE PO STA (12:59)
[2017-11-30] MEDS ORDERED: DEXTROSE 50% 25 GM/50 ML VIAL IV PRN (13:42)
[2017-11-30] MEDS ORDERED: POTASSIUM CHLORIDE 20 MEQ TABLET PO PRN ×2 (13:42)
[2017-11-30] MEDS ORDERED: ONDANSETRON 4 MG/2 ML VIAL IV PRN (13:42)
[2017-11-30] MEDS ORDERED: GLUCAGON 1 MG VIAL IM PRN (13:42)
[2017-11-30] MEDS ORDERED: MAGNESIUM SULF RIDER 2 GM in PREMIX 1 EACH IV PRN (13:42)
[2017-11-30] MEDS ORDERED: MAGNESIUM SULF RIDER 4 GM in PREMIX 1 EACH IV PRN (13:42)
[2017-11-30 13:55] LABS: Basophils # 0.1 10*3/uL (0.0-0.2); Basophils % 1.1 % (0.0-0.8); Eosinophils # 0.3 10*3/uL (0.0-0.87); Eosinophils % 6.3 % (0.00-10.9); Hematocrit 25.9 VOL% (42.0-52.0); Hemoglobin 8.3 GM/DL (14.0-18.0); Immature Granulocytes % 0.2 %; Immature Granulocytes Absolute 0.01 #; Lymphocytes % 43.1 % (21.2-54.2); Mean Corpuscular Hemoglobin 30 PG (27-34); Mean Corpuscular Volume 94.9 FL (87-102); Monocytes # 0.3 10*3/uL (0.11-0.8); Monocytes % 6.8 % (1.7-12.7); Neutrophils % 42.5 % (38.7-73.9); Platelet Count 158 T/CUMM (130-400); Red Blood Count 2.73 MC/CUMM (3.8-5.5); Red Cell Distribution Width 20.9 % (9.3-17.3); White Blood Count 4.7 T/CUMM (4-12)
[2017-11-30 14:09] LABS: Apearance,Urine CLEAR (Clear); Bilirubin,Urine Negative (Negative); Blood, Urine Small mg/dL (Negative); Glucose,Urine (UA) Negative (Negative); Ketones,Urine Negative (Negative); Nitrite,Urine Negative (Negative); Protein,Urine >=500 MG/DL; RBC,Urine <1 /HPF (0-4); Squamous Epithelial Cell,Urine Occasional /HPF (0-10); Urine Color Yellow (Yellow); Urine Specific Gravity 1.008 (1.001-1.035); Urine Urobilinogen < 2.0 EU/DL (0.2-1.0); WBC,Urine 1 /HPF (0-6)
[2017-11-30] MEDS ORDERED: ATORVASTATIN 40 MG TABLET PO STA (14:45)
[2017-11-30] MEDS ORDERED: hydrALAZINE 20 MG/1 ML VIAL IV PRN (15:54)
[2017-11-30] MEDS: INSULIN LISPRO 100 UNIT/ML SUBCUT SCH ×2 (17:12→22:43)
[2017-11-30 17:13] LABS: Albumin 3.4 G/DL (3.4-5.0); Bilirubin,Total 0.6 MG/DL (0.2-1.0); Magnesium 2.9 MG/DL (1.8-2.4); Total Protein 7.3 G/DL (6.4-8.3)
[2017-11-30 17:14] LABS: Potassium 5.7 MMOL/L (3.5-5.1)
[2017-11-30] MEDS: CARVEDILOL 6.25 MG TABLET PO SCH ×2 (18:03→22:43)
[2017-11-30] MEDS ORDERED: CARVEDILOL 6.25 MG TABLET PO SCH (21:00)
[2017-11-30] MEDS ORDERED: ROSUVASTATIN 20 MG TABLET PO SCH (21:00)
[2017-11-30 21:04] LABS: Hepatitis A Ab IgM Result Negative (Negative); Hepatitis B Core IgM Result Negative (Negative); Hepatitis B Surface Ag Quant < 0.10 Index; Hepatitis B Surface Ag Result Negative (Negative); Hepatitis C Virus Ab Quant 0.07 Index; Hepatitis C Virus Ab Result Negative (Negative)
[2017-11-30] MEDS: SEVELAMER CARBONATE 800 MG TABLET PO SCH (22:42)
[2017-11-30] MEDS: ENOXAPARIN 30 MG/0.3 ML SYRINGE SUBCUT SCH (22:43)
[2017-11-30] MEDS: ATORVASTATIN 40 MG TABLET PO SCH (22:43)
[2017-11-30] MEDS: hydrALAZINE 25 MG TABLET PO SCH (22:43)
[2017-11-30] MEDS: PANTOPRAZOLE 40 MG TABLET PO SCH (22:43)
[2017-11-30] MEDS: ISOSORBIDE MONONITRATE 30 MG TABLET PO SCH (22:43)
[2017-12-01 05:07] LABS: Basophils # 0.1 10*3/uL (0.0-0.2); Basophils % 1.4 % (0.0-0.8); Eosinophils # 0.2 10*3/uL (0.0-0.87); Eosinophils % 5.5 % (0.00-10.9); Hematocrit 23.5 VOL% (42.0-52.0); Hemoglobin 7.4 GM/DL (14.0-18.0); Lymphocytes # 1.5 10*3/uL (1.4-4.0); Mean Corpuscular HGB Conc 31.5 GM/DL (32-36); Mean Corpuscular Hemoglobin 30 PG (27-34); Mean Corpuscular Volume 93.6 FL (87-102); Mean Platelet Volume 10.5 FL (9.6-12.0); Monocytes # 0.4 10*3/uL (0.11-0.8); Monocytes % 9.3 % (1.7-12.7); Neutrophils % 47.8 % (38.7-73.9); Platelet Count 161 T/CUMM (130-400); Red Blood Count 2.51 MC/CUMM (3.8-5.5); White Blood Count 4.2 T/CUMM (4-12)
[2017-12-01 05:41] LABS: Calcium 8.6 MG/DL (8.5-10.1); Magnesium 2.6 MG/DL (1.8-2.4); Osmolality,Calculated 279.8 MOS/KG (273-304); Potassium 4.7 MMOL/L (3.5-5.1)
[2017-12-01 05:42] LABS: Risk Ratio 4.64; VLDL CHOLESTEROL 27.4 MG/DL
[2017-12-01 05:54] LABS: Folate 15.3 NG/ML (5.4-24.0)
[2017-12-01 05:58] LABS: % Iron Saturation 23.4 % (18-50); Ferritin 2513.6 ng/ml (26-388)
[2017-12-01 06:00] LABS: Calcium 8.6 MG/DL (8.5-10.1); Potassium 4.7 MMOL/L (3.5-5.1)
[2017-12-01] MEDS: INSULIN LISPRO 100 UNIT/ML SUBCUT SCH ×4 (08:15→22:04)
[2017-12-01] MEDS ORDERED: SODIUM CHLORIDE 0.9% 1,000 ML IV PRN (08:44)
[2017-12-01] MEDS: SEVELAMER CARBONATE 800 MG TABLET PO SCH ×3 (08:47→16:25)
[2017-12-01] MEDS: CINACALCET 30 MG TABLET PO SCH (08:47)
[2017-12-01] MEDS: MULTIVITAMIN (CENTRUM) TABLET PO SCH (08:47)
[2017-12-01] MEDS: ACETAMINOPHEN 325 MG TABLET PO PRN ×2 (08:48→15:10)
[2017-12-01] MEDS: hydrALAZINE 25 MG TABLET PO SCH ×3 (08:48→22:03)
[2017-12-01] MEDS: ISOSORBIDE MONONITRATE 30 MG TABLET PO SCH (08:48)
[2017-12-01] MEDS: PANTOPRAZOLE 40 MG TABLET PO SCH (08:49)
[2017-12-01] MEDS: CARVEDILOL 6.25 MG TABLET PO SCH ×2 (08:49→22:03)
[2017-12-01] MEDS ORDERED: ASPIRIN EC 81 MG TABLET PO SCH (09:00)
[2017-12-01 16:24] LABS: Hematocrit 27.5 VOL% (42.0-52.0)
[2017-12-01 16:25] LABS: Hemoglobin 8.8 GM/DL (14.0-18.0)
[2017-12-01] MEDS: GABAPENTIN 100 MG CAPSULE PO SCH ×2 (16:26→22:03)
[2017-12-01] MEDS ORDERED: GABAPENTIN 100 MG CAPSULE PO SCH (21:00)
[2017-12-01] MEDS: ATORVASTATIN 40 MG TABLET PO SCH (22:03)
[2017-12-01] MEDS: ENOXAPARIN 30 MG/0.3 ML SYRINGE SUBCUT SCH (22:03)
[2017-12-02] MEDS: INSULIN LISPRO 100 UNIT/ML SUBCUT SCH ×4 (07:35→21:03)
[2017-12-02 08:06] LABS: Basophils % 0.9 % (0.0-0.8); Eosinophils # 0.3 10*3/uL (0.0-0.87); Eosinophils % 5.5 % (0.00-10.9); Hematocrit 27.6 VOL% (42.0-52.0); Hemoglobin 9.2 GM/DL (14.0-18.0); Immature Granulocytes % 0.2 %; Immature Granulocytes Absolute 0.01 #; Lymphocytes # 2.1 10*3/uL (1.4-4.0); Lymphocytes % 44.8 % (21.2-54.2); Mean Corpuscular HGB Conc 33.3 GM/DL (32-36); Mean Corpuscular Hemoglobin 31 PG (27-34); Mean Corpuscular Volume 92.3 FL (87-102); Mean Platelet Volume 10.4 FL (9.6-12.0); Monocytes # 0.5 10*3/uL (0.11-0.8); Monocytes % 10.9 % (1.7-12.7); Neutrophils # 1.7 10*3/uL (1.4-7.4); Neutrophils % 37.7 % (38.7-73.9); Platelet Count 156 T/CUMM (130-400); Red Blood Count 2.99 MC/CUMM (3.8-5.5); Red Cell Distribution Width 18.7 % (9.3-17.3); White Blood Count 4.6 T/CUMM (4-12)
[2017-12-02 08:38] LABS: Eosinophils 6 % (0-10); Hypochromasia 1+; Lymphocytes 44 % (20-55); Microcytosis 1+; Segmented Neutrophils 43 % (50-85); Total Cells Counted 100
[2017-12-02 08:39] LABS: Anisocytosis 1+; Atypical Lymphocytes Few; Ovalocytes Slight; Platelet Estimate Adequate
[2017-12-02 08:46] LABS: Calcium 8.5 MG/DL (8.5-10.1); Magnesium 3.3 MG/DL (1.8-2.4); Osmolality,Calculated 280.1 MOS/KG (273-304); Potassium 4.8 MMOL/L (3.5-5.1)
[2017-12-02] MEDS ORDERED: PROPOFOL 200 MG/20 ML VIAL IV ONE (09:23)
[2017-12-02] MEDS: CINACALCET 30 MG TABLET PO SCH (11:01)
[2017-12-02] MEDS: PANTOPRAZOLE 40 MG TABLET PO SCH (11:01)
[2017-12-02] MEDS: SEVELAMER CARBONATE 800 MG TABLET PO SCH ×3 (11:01→18:08)
[2017-12-02] MEDS: MULTIVITAMIN (CENTRUM) TABLET PO SCH (11:01)
[2017-12-02] MEDS: hydrALAZINE 25 MG TABLET PO SCH ×3 (11:02→21:03)
[2017-12-02] MEDS: GABAPENTIN 100 MG CAPSULE PO SCH ×3 (11:02→21:03)
[2017-12-02] MEDS: ISOSORBIDE MONONITRATE 30 MG TABLET PO SCH (11:02)
[2017-12-02] MEDS: CARVEDILOL 6.25 MG TABLET PO SCH ×2 (11:03→21:03)
[2017-12-02] MEDS: ENOXAPARIN 30 MG/0.3 ML SYRINGE SUBCUT SCH (21:02)
[2017-12-02] MEDS: ATORVASTATIN 40 MG TABLET PO SCH (21:03)
[2017-12-03 08:00] LABS: Basophils % 0.4 % (0.0-0.8); Eosinophils # 0.3 10*3/uL (0.0-0.87); Hematocrit 28.1 VOL% (42.0-52.0); Hemoglobin 9.4 GM/DL (14.0-18.0); Immature Granulocytes % 0.2 %; Immature Granulocytes Absolute 0.01 #; Lymphocytes # 2.1 10*3/uL (1.4-4.0); Lymphocytes % 41.4 % (21.2-54.2); Mean Corpuscular HGB Conc 33.5 GM/DL (32-36); Mean Corpuscular Hemoglobin 31 PG (27-34); Mean Corpuscular Volume 91.8 FL (87-102); Mean Platelet Volume 10.5 FL (9.6-12.0); Monocytes # 0.5 10*3/uL (0.11-0.8); Monocytes % 8.9 % (1.7-12.7); Neutrophils # 2.2 10*3/uL (1.4-7.4); Neutrophils % 43.1 % (38.7-73.9); Platelet Count 159 T/CUMM (130-400); Red Blood Count 3.06 MC/CUMM (3.8-5.5); Red Cell Distribution Width 18.8 % (9.3-17.3); White Blood Count 5.1 T/CUMM (4-12)
[2017-12-03] MEDS ORDERED: diphenhydrAMINE CAP 25 MG CAPSULE PO ONE (08:00)
[2017-12-03] MEDS ORDERED: DIAZEPAM 5 MG TABLET PO ONE (08:00)
[2017-12-03] MEDS: INSULIN LISPRO 100 UNIT/ML SUBCUT SCH ×4 (08:21→21:59)
[2017-12-03 08:39] LABS: Magnesium 3.2 MG/DL (1.8-2.4); Osmolality,Calculated 282.1 MOS/KG (273-304)
[2017-12-03] MEDS: SEVELAMER CARBONATE 800 MG TABLET PO SCH ×3 (09:00→17:35)
[2017-12-03] MEDS ORDERED: HEPARIN/NACL 0.9% 2 UNITS/ML 2,000 ML IV ONE (09:36)
[2017-12-03] MEDS ORDERED: MIDAZOLAM 2 MG/2 ML VIAL ONE (09:41)
[2017-12-03] MEDS ORDERED: LIDOCAINE 1% 20 ML VIAL ONE (09:41)
[2017-12-03] MEDS ORDERED: NITROGLYCERIN DRIP 50 MG/250 ML BOTTLE IV ONE (09:41)
[2017-12-03] MEDS ORDERED: VERAPAMIL 5 MG/2 ML VIAL ONE (09:41)
[2017-12-03] MEDS ORDERED: HYDROmorphone 2 MG/1 ML VIAL ONE (09:44)
[2017-12-03] MEDS ORDERED: ENOXAPARIN 30 MG/0.3 ML SYRINGE ONE (10:05)
[2017-12-03] MEDS ORDERED: BIVALIRUDIN 250 MG VIAL IV ONE (10:21)
[2017-12-03] MEDS ORDERED: TICAGRELOR 90 MG TABLET ONE (11:48)
[2017-12-03] MEDS: MULTIVITAMIN (CENTRUM) TABLET PO SCH (13:26)
[2017-12-03] MEDS: CINACALCET 30 MG TABLET PO SCH (13:26)
[2017-12-03] MEDS: hydrALAZINE 25 MG TABLET PO SCH ×3 (13:27→21:59)
[2017-12-03] MEDS: ISOSORBIDE MONONITRATE 30 MG TABLET PO SCH (13:27)
[2017-12-03] MEDS: GABAPENTIN 100 MG CAPSULE PO SCH ×3 (13:27→21:59)
[2017-12-03] MEDS: PANTOPRAZOLE 40 MG TABLET PO SCH (13:27)
[2017-12-03] MEDS: CARVEDILOL 6.25 MG TABLET PO SCH ×2 (13:27→21:59)
[2017-12-03] MEDS: ENOXAPARIN 30 MG/0.3 ML SYRINGE SUBCUT SCH (21:58)
[2017-12-03] MEDS: ATORVASTATIN 40 MG TABLET PO SCH (21:59)
[2017-12-03] MEDS: TICAGRELOR 90 MG TABLET PO SCH (21:59)
[2017-12-04 05:41] LABS: Basophils % 0.9 % (0.0-0.8); Eosinophils # 0.2 10*3/uL (0.0-0.87); Eosinophils % 5.2 % (0.00-10.9); Hematocrit 28.5 VOL% (42.0-52.0); Hemoglobin 9.2 GM/DL (14.0-18.0); Immature Granulocytes % 0.2 %; Immature Granulocytes Absolute 0.01 #; Lymphocytes # 1.8 10*3/uL (1.4-4.0); Lymphocytes % 38.4 % (21.2-54.2); Mean Corpuscular HGB Conc 32.3 GM/DL (32-36); Mean Corpuscular Hemoglobin 30 PG (27-34); Mean Corpuscular Volume 93.4 FL (87-102); Mean Platelet Volume 10.9 FL (9.6-12.0); Monocytes # 0.5 10*3/uL (0.11-0.8); Monocytes % 10.2 % (1.7-12.7); Neutrophils # 2.1 10*3/uL (1.4-7.4); Neutrophils % 45.1 % (38.7-73.9); Platelet Count 164 T/CUMM (130-400); Red Blood Count 3.05 MC/CUMM (3.8-5.5); Red Cell Distribution Width 18.7 % (9.3-17.3); White Blood Count 4.6 T/CUMM (4-12)
[2017-12-04 06:05] LABS: Giant Platelets Few; Hypochromasia 1+; Microcytosis Slight; Ovalocytes Slight; Platelet Estimate Normal
[2017-12-04 06:15] LABS: Troponin I Only 0.525 NG/ML (0.00-0.045)
[2017-12-04 06:19] LABS: Calcium 8.3 MG/DL (8.5-10.1); Magnesium 2.6 MG/DL (1.8-2.4); Osmolality,Calculated 271.2 MOS/KG (273-304); Potassium 4.7 MMOL/L (3.5-5.1)
[2017-12-04] MEDS: INSULIN LISPRO 100 UNIT/ML SUBCUT SCH ×3 (07:57→16:12)
[2017-12-04] MEDS: SEVELAMER CARBONATE 800 MG TABLET PO SCH ×3 (08:19→17:14)
[2017-12-04] MEDS: PANTOPRAZOLE 40 MG TABLET PO SCH (09:36)
[2017-12-04] MEDS: CINACALCET 30 MG TABLET PO SCH (09:36)
[2017-12-04] MEDS: GABAPENTIN 100 MG CAPSULE PO SCH ×2 (09:37→14:33)
[2017-12-04] MEDS: MULTIVITAMIN (CENTRUM) TABLET PO SCH (09:37)
[2017-12-04] MEDS: hydrALAZINE 25 MG TABLET PO SCH (09:38)
[2017-12-04] MEDS: ISOSORBIDE MONONITRATE 30 MG TABLET PO SCH (09:38)
[2017-12-04] MEDS: TICAGRELOR 90 MG TABLET PO SCH (09:38)
[2017-12-04] MEDS: CARVEDILOL 6.25 MG TABLET PO SCH (09:39)
[2017-12-04 17:40] VITALS: BP 101/52
== END 2017-12-04 17:49 | disposition home or self-care (01) | DRG 246 ==
LOC: N.ED 09:35 → N.EDINP 12:53 → SUATTDRO 12:53 → N.EDINP 15:33 → N.TELEN 15:44
PROVIDERS: ADMIT Family Medicine; ATTEND Internal Medicine